=== PATIENT | female | born 2000 | race Caucasian/White ===

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

== ENCOUNTER 2018-01-25 22:18 | Outpatient (CLI) | payer MEDICAID ==
[~2018-01-25] VITALS: Ht 154.9 cm; Wt 92.5 kg
[~2018-01-25 22:18] MED LIST: CEFD300C3 PO; PREN1TAB86 PO
[2018-01-25 22:33] VITALS: BP 129/70
[2018-01-25 22:43] LABS: BILIRUBIN,URINE NEGATIVE (NEGATIVE); CLARITY,URINE SLIGHTLY CLOUDY; COLOR,URINE YELLOW; GLUCOSE, URINE (UA) NEGATIVE (NEGATIVE); KETONES,URINE NEGATIVE (NEGATIVE); LEUKOCYTE ESTERASE ,URINE 3+ (NEGATIVE); NITRITE,URINE NEGATIVE (NEGATIVE); PH,URINE 7 (5-9); PROTEIN,URINE NEGATIVE (NEGATIVE); UROBILINOGEN,URINE NORMAL (NORMAL)
[2018-01-25 22:50] LABS: AMORPHOUS SEDIMENT,UR MOD AMOR URATES /LPF; BACTERIA,URINE FEW /HPF
[2018-01-25 23:15] VITALS: BP 129/70
== END 2018-01-25 23:15 | disposition home or self-care (01) ==
LOC: WSo 22:18 → LDRP 22:19 → WSo 23:15
PROVIDERS: ATTEND Family Medicine
DX: O36.8130 Decreased fetal movements, third trimester, not applicable or unspecified (principal); Z3A.38 38 weeks gestation of pregnancy
CPT/HCPCS: 81000; 87088; 99212

== ENCOUNTER 2018-02-02 18:42 | Inpatient (IN) | payer MEDICAID ==
[~2018-02-02] VITALS: Ht 154.9 cm; Wt 92.8 kg
--- OUTSIDE RECORDS SUMMARY | 2018-02-02 18:45 | XMS REPORT ---
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 51772323 Problem Supervision of other high risk pregnancies, unspecified trimester O09.899 Active 050045371 Problem Other infections with a predominantly sexual mode of transmission complicating , first trimester O98.311 Active [id number] ALLERGIES No Known Allergies ENCOUNTERS Encounter Location Date Diagnosis [place] [id number] [place] [address]3905- 5782 02 Jan, 2018 Third trimester Z34.93 ; Encounter for immunization Z23 and 38 weeks gestation of Z3A.38 [place] [id number] [place] [address] 09936- 5050 25 Dec, 2017 care, first in third trimester Z34.03 and 37 weeks gestation of Z3A.37 [place] [id number] [place] [address] 79534- 2307 18 Dec, 2017 Dental examination Z01.20 [place] [id number] [place] [address] 05553- 2424 18 Dec, 2017 Third trimester Z34.93 and 36 weeks gestation of Z3A.36 [place] [address] [place] [address] Dec, Third trimester Z34.93 ; 34 weeks gestation of Z3A.34 and 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 [place] [id number] [place] [address] 51479- 4467 Nov, care, first in third trimester Z34.03 and 32 weeks gestation of Z3A.32 [place] [id number] [place] [address] 11029- 9231 Nov, care, first in third trimester Z34.03 ; 30 weeks gestation of Z3A.30 and Encounter for immunization Z23 [address] [address] Oct, care in third trimester Z34.93 and 28 weeks gestation of Z3A.[address] 17[address]- 6[address] Oct, Unspecified blood type, Rh negative Z67.91 [place] [id number] [place] [address] 14323- 0628 Oct, care, first in second trimester Z34.02 and 26 weeks gestation of Z3A.26 [place] [id number] [place] [address] 84601- 9874 Sep, care in second trimester Z34.92 and 22 weeks gestation of Z3A.22 [place] [id number] [place] [address] 78649- 3353 August, [place] [id number] [place] [address] 72796- 7356 August, Screening, deficiency anemia, iron Z13.0 [place] [id number] [place] [address] 06180- 2075 August, Urinary tract infection in mother during , antepartum O23.[address] [address]61- [address] August, [facility] [address], [place] [address] August, care, first in second trimester Z34.02 ; 17 weeks gestation of Z3A.17 and care in first trimester Z34.91 [facility] [address], [place] [address] 10 Jul, 2017 care in first trimester Z34.91 and 13 weeks gestation of Z3A.13 [facility] [address] [place] [address] 38936- 3363 16 Jun, 2017 care in first trimester Z34.91 [place] [id number] [place] [address] 13766- 9867 Jun, [place] [id number] [place] [address] 88970- 2965 Jun, [facility] [id number] [place] [address] 79229- 5938 Jun, care in first trimester Z34.91 ; 9 weeks gestation of Z3A.09 ; Genital lesion, female N94.9 and Genital candidiasis in female B37.3 [facility] [address], [place] [address] Jun, [facility] [address], [place] [address] Jun, [facility] [id number] [place] [address] 28222- 1864 Jun, [facility] [id number] [place] [address] 22854- 1963 Jun, Encounter for test, result unknown Z32.00 and Urinary tract infection without hematuria, site unspecified N39.0 [facility] [id number] [address] 17 Nov, 2015 Encounter for examination for participation in sport Z02.[address] [facility] [id number] [place] [id number] Jul, Dental examination Z01.20 [facility] [address] [facility] [id number] [place] [id number] Mar, [facility] [address] [facility] [id number] [place] [address] Mar, IMMUNIZATIONS No Known Immunizations SOCIAL HISTORY Never Assessed REASON FOR VISIT Dental est. care/ob PLAN OF CARE Activity Details Follow Up naseem Reason:CLAY/OB PT. VITAL SIGNS Height 62 in 2018-01-10 Blood pressure systolic 110 mmHg 2018-01-10 Blood pressure diastolic 58 mmHg 2018-01-10 MEDICATIONS Medication Instructions Dosage Frequency Start Date End Date Duration Status Acyclovir 400 mg Orally Three times a day 1 tablet 8h Dec, 60 days Not-Taking Complete 14-0.4 MG Orally Once a day 1 tablet 24h Active RESULTS No Results PROCEDURES Procedure Date Ordered Result Body Site INTRAORL - CMPL SERIES CODE 09033 Jan 10, 2018 PROPHYLAXIS - ADULT Jan 10, 2018 PANORAMIC FILM SEE ALSO CODE 58907 Jan 10, 2018 TOPICAL FLUORIDE VARNISH Jan 10, 2018 INSTRUCTIONS MEDICATIONS ADMINISTERED No Known Medications MEDICAL (GENERAL) HISTORY Type Description Date Medical History Pt. is due 2017 Surgical History No know Surgical history
--- OUTSIDE RECORDS SUMMARY | 2018-02-02 18:45 | XMS REPORT ---
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 93398847 Problem Supervision of other high risk pregnancies, unspecified trimester O09.899 Active 766522561 Problem Other infections with a predominantly sexual mode of transmission complicating , first trimester O98.311 Active 205481607075352 ALLERGIES No Known Allergies ENCOUNTERS Encounter Location Date Diagnosis [place] [id number] [place] [address] 17438- 0186 02 Jan, 2018 Third trimester Z34.93 ; Encounter for immunization Z23 and 38 weeks gestation of Z3A.38 [place] [id number] [place] [address] 94302- 2844 25 Dec, 2017 care, first in third trimester Z34.03 and 37 weeks gestation of Z3A.37 [place] [id number] [place] [address] 51591- 7068 18 Dec, 2017 Dental examination Z01.20 [place] [address] [place] [address] 50692- 4640 18 Dec, 2017 Third trimester Z34.93 and 36 weeks gestation of Z3A.[address] [address]- [address] Dec, Third trimester Z34.93 ; 34 weeks gestation of Z3A.34 and 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 [place] [address] [place] [address] 32509- 5202 Nov, care, first in third trimester Z34.03 and 32 weeks gestation of Z3A.32 [place] [address] [place] [address] 77723- 5788 Nov, care, first in third trimester Z34.03 ; 30 weeks gestation of Z3A.30 and Encounter for immunization Z23 [address] [address]- 6794 Oct, care in third trimester Z34.93 and 28 weeks gestation of Z3A.28 [place] [address] [place] [address] 34952- 0279 Oct, Unspecified blood type, Rh negative Z67.91 [place] [address] [place] [address] 48544- 3686 Oct, care, first in second trimester Z34.02 and 26 weeks gestation of Z3A.26 [place] [address] [place] [address] 01933- 1793 Sep, care in second trimester Z34.92 and 22 weeks gestation of Z3A.22 [place] [address] [place] [address] 73867- 2947 August, [place] [address] [place] [address] 89523- 7640 August, Screening, deficiency anemia, iron Z13.0 [place] [address] [place] [address] 56640- 2500 August, Urinary tract infection in mother during , antepartum O23.40 [place] [id number] [place] [address] 11309- 8494 August, [facility] [id number] [address] August, care, first in second trimester Z34.02 ; 17 weeks gestation of Z3A.17 and care in first trimester Z34.91 [facility] [address] [address] 10 Jul, 2017 care in first trimester Z34.91 and 13 weeks gestation of Z3A.13 [facility] [address] [address]- [address] Jun, care in first trimester Z34.91 [place] [address] [address]- [address] Jun, [place] [address] [address]- 46[address] Jun, [facility] [address] [place] [address] 80876- 2555 Jun, care in first trimester Z34.91 ; 9 weeks gestation of Z3A.09 ; Genital lesion, female N94.9 and Genital candidiasis in female B37.3 [facility] [address] [address]- 99[address] Jun, [facility] [address] [address]- 1764 Jun, [facility] [address] [address]- 3[address] Jun, [facility] [address] [address]- 8[address] Jun, Encounter for test, result unknown Z32.00 and Urinary tract infection without hematuria, site unspecified N39.0 [facility] [address] [facility] [id number] [address] Nov, Encounter for examination for participation in sport Z02.5 [facility] [address] [id number] [place] [id number] Jul, Dental examination Z01.20 [facility] [address] [facility] [id number] [place] [address] Mar, [facility] [address] [facility] [id number] [place] [address] 8014 Mar, IMMUNIZATIONS No Known Immunizations SOCIAL HISTORY Never Assessed REASON FOR VISIT OB 2wk f/u -mpolshakMA PLAN OF CARE Activity Details Follow Up 1 Week, 1 Week, 1 Week Reason: VITAL SIGNS Height 62 in 2018-01-10 Weight 198.3 lbs 2018-01-10 Temperature 97.1 degrees Fahrenheit 2018-01-10 Heart Rate 94 bpm 2018-01-10 Respiratory Rate 20 2018-01-10 BMI 36.27 kg/m2 2018-01-10 Blood pressure systolic 110 mmHg 2018-01-10 Blood pressure diastolic 58 mmHg 2018-01-10 MEDICATIONS Medication Instructions Dosage Frequency Start Date End Date Duration Status Acyclovir 400 mg Orally Three times a day 1 tablet 8h Dec, 60 days Not-Taking Complete 14-0.4 MG Orally Once a day 1 tablet 24h Active RESULTS No Results PROCEDURES Procedure Date Ordered Result Body Site URINE-NO MICRO Jan 10, 2018 LAB NOT BILLED BY [facility] Jan 10, 2018 INSTRUCTIONS MEDICATIONS ADMINISTERED No Known Medications MEDICAL (GENERAL) HISTORY Type Description Date Medical History Pt. is due 2017 Surgical History No know Surgical history
--- OUTSIDE RECORDS SUMMARY | 2018-02-02 18:45 | XMS REPORT ---
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 41750348 Problem Supervision of other high risk pregnancies, unspecified trimester O09.899 Active 823768524 Problem Other infections with a predominantly sexual mode of transmission complicating , first trimester O98.311 Active 484325472848849 ALLERGIES No Known Allergies ENCOUNTERS Encounter Location Date Diagnosis [place] [id number] [place] [address]96- 2674 02 Jan, 2018 Third trimester Z34.93 ; Encounter for immunization Z23 and 38 weeks gestation of Z3A.38 [place] [id number] [place] [address] 29312- 9895 25 Dec, 2017 care, first in third trimester Z34.03 and 37 weeks gestation of Z3A.37 [place] [address] [place] [address] 12604- 8027 18 Dec, 2017 Dental examination Z01.20 [place] [address] [place] [address] 52246- 7463 18 Dec, 2017 Third trimester Z34.93 and 36 weeks gestation of Z3A.[address] [address]24- [address]60 Dec, Third trimester Z34.93 ; 34 weeks gestation of Z3A.34 and 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 [place] [id number] [place] [address] 63011- 4363 Nov, care, first in third trimester Z34.03 and 32 weeks gestation of Z3A.32 [place] [id number] [place] [address] 32604- 8819 Nov, care, first in third trimester Z34.03 ; 30 weeks gestation of Z3A.30 and Encounter for immunization Z23 [address] [address]- 3974 Oct, care in third trimester Z34.93 and 28 weeks gestation of Z3A.28 [place] [id number] [place] [address] 81585- 6022 Oct, Unspecified blood type, Rh negative Z67.91 [place] [id number] [place] [address] 89082- 1528 Oct, care, first in second trimester Z34.02 and 26 weeks gestation of Z3A.26 [place] [id number] [place] [address] 98810- 3245 Sep, care in second trimester Z34.92 and 22 weeks gestation of Z3A.22 [place] [id number] [place] [address] 14017- 7708 August, [place] [id number] [place] [address] 92865- 9167 August, Screening, deficiency anemia, iron Z13.0 [place] [id number] [place] [address] 45617- 6782 August, Urinary tract infection in mother during , antepartum O23.40 [place] [id number] [place] [address] 68509- 4287 August, [facility] [place] [id number], [place] [address] August, care, first in second trimester Z34.02 ; 17 weeks gestation of Z3A.17 and care in first trimester Z34.91 [facility] [place] [address], [place] [address]- [address] 10 Jul, 2017 care in first trimester Z34.91 and 13 weeks gestation of Z3A.13 [facility] [place] [address], [place] [address]- 76[address] Jun, care in first trimester Z34.91 [place] [address], [place] [address]- 0[address] Jun, [place] [address], [place] [address]- 0035 Jun, [facility] [place] [address] [place] [address] 04095- 2674 Jun, care in first trimester Z34.91 ; 9 weeks gestation of Z3A.09 ; Genital lesion, female N94.9 and Genital candidiasis in female B37.3 [facility] [place] [address], [place] [address]- 2147 Jun, [facility] [place] [address], [place] [address]- 5600 Jun, [facility] [place] [address], [place] [address]- 3096 Jun, [facility] [place] [address], [place] [address]- 24[address] Jun, Encounter for test, result unknown Z32.00 and Urinary tract infection without hematuria, site unspecified N39.0 [facility] [address] [facility] [id number] [address] Nov, Encounter for examination for participation in sport Z02.[address] [facility] [id number] [place] [id number] Jul, Dental examination Z01.20 [facility] [place] [address] [facility] [id number] [place] [address]- 4[address] Mar, [facility] [place] [address] [facility] [id number] [place] [address]- 3279 Mar, IMMUNIZATIONS No Known Immunizations SOCIAL HISTORY Never Assessed REASON FOR VISIT OB 2wk f/u, OB Urine Dip, Cervix check--tcuppettRN PLAN OF CARE Activity Details Follow Up 1 Week Reason: VITAL SIGNS Height 62 in 2018-01-17 Weight 200.3 lbs 2018-01-17 Temperature 98.5 degrees Fahrenheit 2018-01-17 Heart Rate 92 bpm 2018-01-17 Respiratory Rate 18 2018-01-17 BMI 36.635 kg/m2 2018-01-17 Blood pressure systolic 112 mmHg 2018-01-17 Blood pressure diastolic 60 mmHg 2018-01-17 MEDICATIONS Medication Instructions Dosage Frequency Start Date End Date Duration Status Acyclovir 400 mg Orally Three times a day 1 tablet 8h Dec, 60 days Active Complete 14-0.4 MG Orally Once a day 1 tablet 24h Active RESULTS Name Result Date Reference Range UA OB DIP (IN HOUSE) 2018-01-17 Glucose Negative Protein Trace PROCEDURES Procedure Date Ordered Result Body Site URINE-NO MICRO Jan 17, 2018 INSTRUCTIONS MEDICATIONS ADMINISTERED No Known Medications MEDICAL (GENERAL) HISTORY Type Description Date Medical History Pt. is due 2017 Surgical History No know Surgical history
--- OUTSIDE RECORDS SUMMARY | 2018-02-02 18:46 | XMS REPORT ---
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 68104358 Problem Supervision of other high risk pregnancies, unspecified trimester O09.899 Active 060365874 Problem Other infections with a predominantly sexual mode of transmission complicating , first trimester O98.311 Active [id number] ALLERGIES No Information ENCOUNTERS Encounter Location Date Diagnosis [place] [id number] [place] [address] 69111- 2526 Jan, [place] [id number] [place] [address] 06462- 4272 Dec, [facility] [id number] [place] [address] 97095- 7496 Dec, [facility] [id number] [place] [address] 58624- 3507 Dec, [place] [address] 69071- 1353 Dec, Third trimester Z34.93 ; 34 weeks gestation of Z3A.34 and 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 [facility] [address] 37995- 6839 Nov, care, first in third trimester Z34.03 and 32 weeks gestation of Z3A.32 [place] [id number] [place] [address] 77631- 7903 Nov, care, first in third trimester Z34.03 ; 30 weeks gestation of Z3A.30 and Encounter for immunization Z23 [place] [address] 36060- 2808 Oct, care in third trimester Z34.93 and 28 weeks gestation of Z3A.28 [place] [id number] [place] [address] 48172- 6902 Oct, Unspecified blood type, Rh negative Z67.91 [place] [id number] [place] [address] 98543- 8464 Oct, care, first in second trimester Z34.02 and 26 weeks gestation of Z3A.26 [place] [id number] [place] [address] 49770- 4571 Sep, care in second trimester Z34.92 and 22 weeks gestation of Z3A.22 [place] [id number] [place] [address] 29718- 3281 August, [place] [id number] [place] [address] 30955- 6741 August, Screening, deficiency anemia, iron Z13.0 [place] [id number] [place] [address] 49272- 5051 August, Urinary tract infection in mother during , antepartum O23.40 [place] [id number] [place] [address] 91602- 2513 August, [place] [id number] [place] [address] 58598- 3797 August, care, first in second trimester Z34.02 ; 17 weeks gestation of Z3A.17 and care in first trimester Z34.91 [place] [address], [place] [address] 4283 10 Jul, 2017 care in first trimester Z34.91 and 13 weeks gestation of Z3A.13 [facility] [address], [place] [address] 2999 16 Jun, 2017 care in first trimester Z34.91 [facility] [id number] [place] [address] 31020- 7465 16 Jun, 2017 [place] [address] [place] [address] 10762- 5691 14 Jun, 2017 [place] [id number] [place] [address] 74007- 6402 13 Jun, 2017 care in first trimester Z34.91 ; 9 weeks gestation of Z3A.09 ; Genital lesion, female N94.9 and Genital candidiasis in female B37.3 [place] [address] [place] [address] 46340- 1683 09 Jun, 2017 [place] [address] [place] [address] 69549- 0577 Jun, [facility] [address] [place] [address] 97639- 1703 Jun, [facility] [address], [place] [address] 4317 Jun, Encounter for test, result unknown Z32.00 and Urinary tract infection without hematuria, site unspecified N39.0 [facility] [address], [place] [address] Nov, Encounter for examination for participation in sport Z02.5 [facility] [id number] [place] [id number] Jul, Dental examination Z01.20 [facility] [id number], [place] [address]- 9224 Mar, [facility] [address] [address]- 8181 Mar, IMMUNIZATIONS No Known Immunizations SOCIAL HISTORY Never Assessed REASON FOR VISIT OB f/u-nathan hernandez drank at 1348 PLAN OF CARE Activity Details Follow Up 2 Weeks, 2 Weeks, 2 Weeks Reason: VITAL SIGNS Height 62 in 2017-11-03 Weight 184 lbs 2017-11-03 Temperature 98.6 degrees Fahrenheit 2017-11-03 Heart Rate 112 bpm 2017-11-03 Respiratory Rate 18 2017-11-03 BMI 33.654 kg/m2 2017-11-03 Blood pressure systolic 112 mmHg 2017-11-03 Blood pressure diastolic 68 mmHg 2017-11-03 MEDICATIONS Medication Instructions Dosage Frequency Start Date End Date Duration Status Complete 14-0.4 MG Orally Once a day 1 tablet 24h Active Omnicef Active RESULTS No Results PROCEDURES Procedure Date Ordered Result Body Site LAB [facility] November 03, 2017 URINE-NO MICRO November 03, 2017 VENIPUNCT, ROUTINE* November 03, 2017 INSTRUCTIONS MEDICATIONS ADMINISTERED No Known Medications
--- OUTSIDE RECORDS SUMMARY | 2018-02-02 18:46 | XMS REPORT ---
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 48668365 Problem Supervision of other high risk pregnancies, unspecified trimester O09.899 Active 623153076 Problem Other infections with a predominantly sexual mode of transmission complicating , first trimester O98.311 Active [id number] ALLERGIES No Known Allergies ENCOUNTERS Encounter Location Date Diagnosis [place] [id number] [place] [address] 76784- 6873 02 Jan, 2018 [place] [id number] [place] [address] 46629- 8321 Dec, [place] [id number] [place] [address] 30209- 5146 Dec, Dental examination Z01.20 [place] [id number] [place] [address] 88409- 0583 18 Dec, 2017 Third trimester Z34.93 and 36 weeks gestation of Z3A.36 [place] [id number] [place] [address] 62536- 0344 05 Dec, 2017 Third trimester Z34.93 ; 34 weeks gestation of Z3A.34 and 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 [place] [address], [place] [address]- 6989 Nov, care, first in third trimester Z34.03 and 32 weeks gestation of Z3A.32 [place] [id number] [place] [address] 60104- 6755 Nov, care, first in third trimester Z34.03 ; 30 weeks gestation of Z3A.30 and Encounter for immunization Z23 [place] [id number] [place] [address] 14811- 5751 Oct, care in third trimester Z34.93 and 28 weeks gestation of Z3A.28 [place] [id number] [place] [address] 61756- 5552 Oct, Unspecified blood type, Rh negative Z67.91 [place] [id number] [place] [address] 97593- 5550 Oct, care, first in second trimester Z34.02 and 26 weeks gestation of Z3A.26 [place] [id number] [place] [address] 10640- 6654 Sep, care in second trimester Z34.92 and 22 weeks gestation of Z3A.22 [place] [id number] [place] [address] 14156- 8846 August, [place] [id number] [place] [address] 96090- 1542 August, Screening, deficiency anemia, iron Z13.0 [place] [id number] [place] [address] 99319- 7916 August, Urinary tract infection in mother during , antepartum O23.40 [place] [id number] [place] [address] 11292- 2484 August, [place] [id number] [place] [address] 70165- 0659 August, care, first in second trimester Z34.02 ; 17 weeks gestation of Z3A.17 and care in first trimester Z34.91 [place] [address] [place] [address] 48549- 4180 10 Jul, 2017 care in first trimester Z34.91 and 13 weeks gestation of Z3A.13 [facility] [place] [id number] [place] [address] 18469- 6601 16 Jun, 2017 care in first trimester Z34.91 [facility] [place] [id number] [place] [address] 50746- 7621 16 Jun, 2017 [place] [id number] [place] [address] 69897- 5665 14 Jun, 2017 [place] [id number] [place] [address] 67559- 2683 13 Jun, 2017 care in first trimester Z34.91 ; 9 weeks gestation of Z3A.09 ; Genital lesion, female N94.9 and Genital candidiasis in female B37.3 [place] [id number] [place] [address] 56026- 2118 Jun, [place] [id number] [place] [address] 76146- 5850 Jun, [facility] [place] [id number] [place] [address] 29302- 3906 Jun, [facility] [place] [id number] [place] [address] 93753- 1471 Jun, Encounter for test, result unknown Z32.00 and Urinary tract infection without hematuria, site unspecified N39.0 [facility] [address] [place] [address] 83256 -0483 Nov, Encounter for examination for participation in sport Z02.5 [facility] [address] [id number] [id number] Jul, Dental examination Z01.20 [facility] [place] [address] [place] [address] 05005- 2796 Mar, [facility] [place] [address] [facility] [place] [place] [id number] [place] [address]- 8096 Mar, IMMUNIZATIONS No Known Immunizations SOCIAL HISTORY Never Assessed REASON FOR VISIT OB 2wk f/u --tcuppettRN PLAN OF CARE Activity Details Follow Up 2 Weeks Reason: VITAL SIGNS Height 62 in 2017-12-15 Weight 192.4 lbs 2017-12-15 Temperature 98.2 degrees Fahrenheit 2017-12-15 Heart Rate 88 bpm 2017-12-15 Respiratory Rate 20 2017-12-15 BMI 35.19 kg/m2 2017-12-15 Blood pressure systolic 116 mmHg 2017-12-15 Blood pressure diastolic 62 mmHg 2017-12-15 MEDICATIONS Medication Instructions Dosage Frequency Start Date End Date Duration Status Complete 14-0.4 MG Orally Once a day 1 tablet 24h Active RESULTS Name Result Date Reference Range UA OB DIP (IN HOUSE) 2017-12-15 Glucose negative Protein 1+ PROCEDURES Procedure Date Ordered Result Body Site URINE-NO MICRO Dec 15, 2017 INSTRUCTIONS MEDICATIONS ADMINISTERED No Known Medications MEDICAL (GENERAL) HISTORY Type Description Date Medical History Pt. is due 2017 Surgical History No know Surgical history
--- OUTSIDE RECORDS SUMMARY | 2018-02-02 18:46 | XMS REPORT ---
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 00932075 Problem Supervision of other high risk pregnancies, unspecified trimester O09.899 Active 102326915 Problem Other infections with a predominantly sexual mode of transmission complicating , first trimester O98.311 Active [id number] ALLERGIES No Information ENCOUNTERS Encounter Location Date Diagnosis [place] [id number] [place] [address] 65686- 1917 Jan, [place] [id number] [place] [address] 36187- 7479 Dec, [facility] [id number] [place] [address] 33646- 3935 Dec, [facility] [id number] [place] [address] 81648- 2380 Dec, [place] [address] 18323- 2572 Dec, Third trimester Z34.93 ; 34 weeks gestation of Z3A.34 and 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 [facility] [address] 42814- 5932 Nov, care, first in third trimester Z34.03 and 32 weeks gestation of Z3A.32 [place] [id number] [place] [address] 00208- 8185 Nov, care, first in third trimester Z34.03 ; 30 weeks gestation of Z3A.30 and Encounter for immunization Z23 [place] [address] 06793- 3963 Oct, care in third trimester Z34.93 and 28 weeks gestation of Z3A.28 [place] [id number] [place] [address] 32846- 9226 Oct, Unspecified blood type, Rh negative Z67.91 [place] [id number] [place] [address] 64814- 2976 Oct, care, first in second trimester Z34.02 and 26 weeks gestation of Z3A.26 [place] [id number] [place] [address] 70907- 2813 Sep, care in second trimester Z34.92 and 22 weeks gestation of Z3A.22 [place] [id number] [place] [address] 72236- 7429 August, [place] [id number] [place] [address] 77579- 6555 August, Screening, deficiency anemia, iron Z13.0 [place] [id number] [place] [address] 01361- 2464 August, Urinary tract infection in mother during , antepartum O23.40 [place] [id number] [place] [address] 50335- 3552 August, [place] [id number] [place] [address] 89766- 5948 August, care, first in second trimester Z34.02 ; 17 weeks gestation of Z3A.17 and care in first trimester Z34.91 [place] [address], [place] [address]- 6030 10 Jul, 2017 care in first trimester Z34.91 and 13 weeks gestation of Z3A.13 [facility] [address], [place] [address]- 8977 16 Jun, 2017 care in first trimester Z34.91 [facility] [id number] [place] [address] 66090- 1636 16 Jun, 2017 [place] [address] [place] [address] 74818- 8852 14 Jun, 2017 [place] [id number] [place] [address] 85028- 5520 13 Jun, 2017 care in first trimester Z34.91 ; 9 weeks gestation of Z3A.09 ; Genital lesion, female N94.9 and Genital candidiasis in female B37.3 [place] [address] [place] [address] 66213- 1116 09 Jun, 2017 [place] [address] [place] [address] 72765- 9324 Jun, [facility] [address] [place] [address] 96844- 8141 Jun, [facility] [address], [place] [address]- 6865 Jun, Encounter for test, result unknown Z32.00 and Urinary tract infection without hematuria, site unspecified N39.0 [facility] [address], [place] [address] Nov, Encounter for examination for participation in sport Z02.5 [facility] [id number] [place] [id number] Jul, Dental examination Z01.20 [facility] [id number], [place] [address]- 7757 Mar, [facility] [address] 8023 Mar, IMMUNIZATIONS Vaccine Route Administration Date Status RHOGAM FULL DOSE IM Intramuscular November 09, 2017 Administered SOCIAL HISTORY Never Assessed REASON FOR VISIT Injection, Rhogam-awoods PLAN OF CARE VITAL SIGNS MEDICATIONS Unknown Medications RESULTS No Results PROCEDURES Procedure Date Ordered Result Body Site RH IG, FULL-DOSE, IM November 09, 2017 THER/PROPH/DIAG INJ, SC/IM November 09, 2017 INSTRUCTIONS MEDICATIONS ADMINISTERED No Known Medications
--- OUTSIDE RECORDS SUMMARY | 2018-02-02 18:46 | XMS REPORT ---
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 14306431 Problem Supervision of other high risk pregnancies, unspecified trimester O09.899 Active 928998197 Problem Other infections with a predominantly sexual mode of transmission complicating , first trimester O98.311 Active [id number] ALLERGIES No Information ENCOUNTERS Encounter Location Date Diagnosis [facility] [address] [place] [address] 60544- 6554 02 Jan, 2018 [facility] [id number] [place] [address] 47031- 0015 Dec, [facility] [id number] [place] [address] 03818- 4908 Dec, [facility] [id number] [place] [address] 38479- 3102 Dec, [facility] [id number] [place] [address] 92741- 4077 Nov, [facility] [id number] [place] [address] 45699- 4638 Nov, care, first in third trimester Z34.03 ; 30 weeks gestation of Z3A.30 and Encounter for immunization Z23 [place] [address] [place] [address] 22891- 8018 Oct, care in third trimester Z34.93 and 28 weeks gestation of Z3A.28 [place] [id number] [place] [address] 00398- 8255 Oct, Unspecified blood type, Rh negative Z67.91 [place] [id number] [place] [address] 45747- 0006 Oct, care, first in second trimester Z34.02 and 26 weeks gestation of Z3A.26 [place] [id number] [place] [address] 26188- 9683 Sep, care in second trimester Z34.92 and 22 weeks gestation of Z3A.22 [place] [id number] [place] [address] 33735- 1581 August, [place] [id number] [place] [address] 69367- 0082 August, Screening, deficiency anemia, iron Z13.0 [place] [id number] [place] [address] 86216- 4408 August, Urinary tract infection in mother during , antepartum O23.40 [place] [id number] [place] [address] 52381- 4633 August, [place] [id number] [place] [address] 98718- 8688 August, care, first in second trimester Z34.02 ; 17 weeks gestation of Z3A.17 and care in first trimester Z34.91 [place] [id number] [place] [address] 86169- 5781 Jul, care in first trimester Z34.91 and 13 weeks gestation of Z3A.13 [place] [id number] [place] [address] 79882- 5134 Jun, care in first trimester Z34.91 [facility] [address], [place] [address]- 6853 16 Jun, 2017 [facility] [address], [place] [address]- 6502 14 Jun, 2017 [facility] [address], [place] [address]- 4348 Jun, care in first trimester Z34.91 ; 9 weeks gestation of Z3A.09 ; Genital lesion, female N94.9 and Genital candidiasis in female B37.3 [facility] [address], [place] [address]- 6323 Jun, [place] [id number] [place] [address] 63773- 6893 Jun, [facility] [address] [place] [address] 34454- 6512 Jun, [facility] [address], [place] [address]- 1808 Jun, Encounter for test, result unknown Z32.00 and Urinary tract infection without hematuria, site unspecified N39.0 [facility] [id number], [place] [address] Nov, Encounter for examination for participation in sport Z02.[address] [place] [id number] [id number] Jul, Dental examination Z01.20 [facility] [address] [facility] [id number] [address]- 1701 Mar, [facility] [address] [place] [address] 59122- 0660 Mar, IMMUNIZATIONS No Known Immunizations SOCIAL HISTORY Never Assessed REASON FOR VISIT Lab results PLAN OF CARE VITAL SIGNS MEDICATIONS Unknown Medications RESULTS No Results PROCEDURES No Known procedures INSTRUCTIONS MEDICATIONS ADMINISTERED No Known Medications
--- OUTSIDE RECORDS SUMMARY | 2018-02-02 18:46 | XMS REPORT ---
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 32556855 Problem Supervision of other high risk pregnancies, unspecified trimester O09.899 Active 795955473 Problem Other infections with a predominantly sexual mode of transmission complicating , first trimester O98.311 Active [id number] ALLERGIES No Information ENCOUNTERS Encounter Location Date Diagnosis [facility] [id number] [place] [address] 16826- 4404 02 Jan, 2018 [facility] [id number] [place] [address] 97458- 2544 Dec, [facility] [id number] [place] [address] 30096- 4953 Dec, [facility] [id number] [place] [address] 23156- 2197 Dec, [facility] [id number] [place] [address] 40858- 2723 Nov, [facility] [id number] [place] [address] 24613- 2150 Nov, care, first in third trimester Z34.03 ; 30 weeks gestation of Z3A.30 and Encounter for immunization Z23 [place] [address] [place] [address] 66760- 3091 Oct, care in third trimester Z34.93 and 28 weeks gestation of Z3A.28 [place] [id number] [place] [address] 28728- 8163 Oct, Unspecified blood type, Rh negative Z67.91 [place] [id number] [place] [address] 72088- 7879 Oct, care, first in second trimester Z34.02 and 26 weeks gestation of Z3A.26 [place] [id number] [place] [address] 62854- 0236 Sep, care in second trimester Z34.92 and 22 weeks gestation of Z3A.22 [place] [id number] [place] [address] 42219- 9250 August, [place] [id number] [place] [address] 13057- 2834 August, Screening, deficiency anemia, iron Z13.0 [place] [id number] [place] [address] 36878- 7091 August, Urinary tract infection in mother during , antepartum O23.40 [place] [id number] [place] [address] 61012- 0880 August, [place] [id number] [place] [address] 13830- 9889 August, care, first in second trimester Z34.02 ; 17 weeks gestation of Z3A.17 and care in first trimester Z34.91 [place] [id number] [place] [address] 55650- 7524 Jul, care in first trimester Z34.91 and 13 weeks gestation of Z3A.13 [place] [id number] [place] [address] 21348- 5494 Jun, care in first trimester Z34.91 [facility] [address], [place] [address] 2524 16 Jun, 2017 [facility] [id number] [place] [address] 46460- 3236 14 Jun, 2017 [facility] [address] [place] [address] 70963- 9254 13 Jun, 2017 care in first trimester Z34.91 ; 9 weeks gestation of Z3A.09 ; Genital lesion, female N94.9 and Genital candidiasis in female B37.3 [place] [address] [place] [address] 24214- 9488 09 Jun, 2017 [place] [id number] [place] [address] 29000- 1151 Jun, [place] [id number] [place] [address] 36961- 5105 Jun, [facility] [address] [place] [address] 38887- 8024 08 Jun, 2017 Encounter for test, result unknown Z32.00 and Urinary tract infection without hematuria, site unspecified N39.0 [facility] [address] [address] Nov, Encounter for examination for participation in sport Z02.[address] [place] [id number] [id number] [id number] Jul, Dental examination Z01.20 [facility] [address] [facility] [id number] [address] 0979 Mar, [place] [id number] [place] [address] 97082- 3372 Mar, IMMUNIZATIONS No Known Immunizations SOCIAL HISTORY Never Assessed REASON FOR VISIT [facility] Hemoglobin--TSowell PLAN OF CARE VITAL SIGNS MEDICATIONS Unknown Medications RESULTS Name Result Date Reference Range HEMOGLOBIN (IN HOUSE) 2017-09-20 HEMOGLOBIN 10.5 11.5 - 16 gm/dL Lot # [id number] Exp date 01/31/2019 PROCEDURES Procedure Date Ordered Result Body Site HEMOGLOBIN September 20, 2017 INSTRUCTIONS MEDICATIONS ADMINISTERED No Known Medications
--- OUTSIDE RECORDS SUMMARY | 2018-02-02 18:46 | XMS REPORT ---
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 45082527 Problem Supervision of other high risk pregnancies, unspecified trimester O09.899 Active 408036713 Problem Other infections with a predominantly sexual mode of transmission complicating , first trimester O98.311 Active [id number] ALLERGIES No Information ENCOUNTERS Encounter Location Date Diagnosis [place] [id number] [place] [address] 79641- 7060 02 Jan, 2018 [facility] [id number] [place] [address] 01513- 9244 Dec, [facility] [id number] [place] [address] 86671- 8370 Dec, [facility] [id number] [place] [address] 25972- 4966 Dec, [facility] [id number] [place] [address] 18961- 8598 Nov, care, first in third trimester Z34.03 and 32 weeks gestation of Z3A.32 [facility] [id number] [place] [address] 40524- 0867 07 Nov, 2017 care, first in third trimester Z34.03 ; 30 weeks gestation of Z3A.30 and Encounter for immunization Z23 [place] [address] [place] [address] 31100- 6566 Oct, care in third trimester Z34.93 and 28 weeks gestation of Z3A.28 [place] [address] [place] [address] 14933- 8044 Oct, Unspecified blood type, Rh negative Z67.91 [place] [id number] [address]- 3357 Oct, care, first in second trimester Z34.02 and 26 weeks gestation of Z3A.26 [place] [address] [place] [address] 54589- 7605 Sep, care in second trimester Z34.92 and 22 weeks gestation of Z3A.22 [place] [address] [place] [address] 99034- 9337 August, [place] [address] [place] [address] 47445- 0215 August, Screening, deficiency anemia, iron Z13.0 [place] [address] [address]- 7772 August, Urinary tract infection in mother during , antepartum O23.40 [place] [address] [address]- 3902 August, [place] [address] [place] [address] 37872- 2985 August, care, first in second trimester Z34.02 ; 17 weeks gestation of Z3A.17 and care in first trimester Z34.91 [place] [address] [address]- 5732 Jul, care in first trimester Z34.91 and 13 weeks gestation of Z3A.13 [place] [id number] [address]- 4415 16 Jun, 2017 care in first trimester Z34.91 [facility] [address] [place] [address] 57283- 9139 16 Jun, 2017 [place] [address] [place] [address] 44267- 8168 14 Jun, 2017 [facility] [address] [place] [address] 93253- 5879 13 Jun, 2017 care in first trimester Z34.91 ; 9 weeks gestation of Z3A.09 ; Genital lesion, female N94.9 and Genital candidiasis in female B37.3 [place] [address] [place] [address] 64049- 7974 09 Jun, 2017 [place] [address] [place] [address] 95206- 6558 Jun, [place] [address] [place] [address] 05499- 1762 08 Jun, 2017 [facility] [address] [place] [address] 53518- 2325 08 Jun, 2017 Encounter for test, result unknown Z32.00 and Urinary tract infection without hematuria, site unspecified N39.0 [facility] [address] [address] Nov, Encounter for examination for participation in sport Z02.5 [facility] [address] [id number] [id number] Jul, Dental examination Z01.20 [place] [address] [place] [address] 92500- 5018 Mar, [place] [address] [place] [address] 33841- 1948 Mar, IMMUNIZATIONS No Known Immunizations SOCIAL HISTORY Never Assessed REASON FOR VISIT OB f/u -- lynne allen PLAN OF CARE Activity Details Follow Up 4 Weeks, 4 Weeks Reason: VITAL SIGNS Height 62 in 2017-10-04 Weight 175.0 lbs 2017-10-04 Temperature 97.5 degrees Fahrenheit 2017-10-04 Heart Rate 70 bpm 2017-10-04 Respiratory Rate 18 2017-10-04 BMI 32.008 kg/m2 2017-10-04 Blood pressure systolic 120 mmHg 2017-10-04 Blood pressure diastolic 70 mmHg 2017-10-04 MEDICATIONS Medication Instructions Dosage Frequency Start Date End Date Duration Status Complete 14-0.4 MG Orally Once a day 1 tablet 24h Active RESULTS Name Result Date Reference Range UA OB DIP (IN HOUSE) 2017-10-04 Glucose negative Protein negative PROCEDURES Procedure Date Ordered Result Body Site URINE-NO MICRO October 04, 2017 INSTRUCTIONS MEDICATIONS ADMINISTERED No Known Medications
--- OUTSIDE RECORDS SUMMARY | 2018-02-02 18:46 | XMS REPORT ---
Author Author UMM BARBA 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 66764316 Problem Supervision of other high risk pregnancies, unspecified trimester O09.899 Active 448089225 Problem Other infections with a predominantly sexual mode of transmission complicating , first trimester O98.311 Active [id number] ALLERGIES No Known Allergies ENCOUNTERS Encounter Location Date Diagnosis [place] [id number] [place] [address] 10746- 0049 Jan, [facility] [id number] [place] [address] 80712- 0441 Dec, [facility] [id number] [place] [address] 95256- 2868 Dec, [facility] [id number] [place] [address] 35695- 9292 Dec, [facility] [id number] [place] [address] 21969- 7980 Dec, Third trimester Z34.93 ; 34 weeks gestation of Z3A.34 and 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 [facility] [id number] [place] [address] 29099- 5674 Nov, care, first in third trimester Z34.03 and 32 weeks gestation of Z3A.32 [place] [id number] [place] [address] 62816- 3167 Nov, care, first in third trimester Z34.03 ; 30 weeks gestation of Z3A.30 and Encounter for immunization Z23 [place] [address] 70997- 8655 Oct, care in third trimester Z34.93 and 28 weeks gestation of Z3A.28 [place] [id number] [place] [address] 26316- 8227 Oct, Unspecified blood type, Rh negative Z67.91 [place] [address] 60059- 1702 Oct, care, first in second trimester Z34.02 and 26 weeks gestation of Z3A.26 [place] [id number] [place] [address] 30363- 4975 Sep, care in second trimester Z34.92 and 22 weeks gestation of Z3A.22 [place] [id number] [place] [address] 85150- 0114 August, [place] [id number] [place] [address] 33200- 8392 August, Screening, deficiency anemia, iron Z13.0 [place] [id number] [place] [address] 33642- 8910 August, Urinary tract infection in mother during , antepartum O23.40 [place] [address] 97611- 7233 August, [place] [address] 81494- 5017 August, care, first in second trimester Z34.02 ; 17 weeks gestation of Z3A.17 and care in first trimester Z34.91 [place] [address] [address]- 0453 10 Jul, 2017 care in first trimester Z34.91 and 13 weeks gestation of Z3A.13 [facility] [address], [place] [address]- 4089 16 Jun, 2017 care in first trimester Z34.91 [place] [id number] [place] [address] 37600- 8618 16 Jun, 2017 [place] [address] [place] [address] 43733- 7668 14 Jun, 2017 [place] [id number] [place] [address] 73461- 8450 13 Jun, 2017 care in first trimester Z34.91 ; 9 weeks gestation of Z3A.09 ; Genital lesion, female N94.9 and Genital candidiasis in female B37.3 [place] [address] [place] [address] 59439- 9067 09 Jun, 2017 [place] [address] [place] [address] 86841- 7815 Jun, [facility] [address] [place] [address] 78052- 2035 Jun, [facility] [address], [place] [address]- 8890 Jun, Encounter for test, result unknown Z32.00 and Urinary tract infection without hematuria, site unspecified N39.0 [facility] [id number] [address] Nov, Encounter for examination for participation in sport Z02.5 [facility] [address] [facility] [id number] [place] [id number] Jul, Dental examination Z01.20 [facility] [address], [place] [address]- 8205 Mar, [facility] [id number] [id number] 7336 Mar, IMMUNIZATIONS Vaccine Route Administration Date Status TDAP (BOOSTRIX) IM Intramuscular Nov 29, 2017 Administered SOCIAL HISTORY Never Assessed REASON FOR VISIT OB f/u --tcuppettRN PLAN OF CARE Activity Details Follow Up 2 Weeks, 2 Weeks, 2 Weeks Reason: VITAL SIGNS Height 62 in 2017-11-29 Weight 190.9 lbs 2017-11-29 Temperature 98.5 degrees Fahrenheit 2017-11-29 Heart Rate 92 bpm 2017-11-29 Respiratory Rate 20 2017-11-29 BMI 34.916 kg/m2 2017-11-29 Blood pressure systolic 116 mmHg 2017-11-29 Blood pressure diastolic 70 mmHg 2017-11-29 MEDICATIONS Medication Instructions Dosage Frequency Start Date End Date Duration Status Complete 14-0.4 MG Orally Once a day 1 tablet 24h Active Omnicef Not-Taking RESULTS No Results PROCEDURES Procedure Date Ordered Result Body Site URINE-NO MICRO Nov 29, 2017 SINGLE IMMUNIZATION ADMIN Nov 29, 2017 TDAP (BOOSTRIX) Nov 29, 2017 LAB NOT BILLED BY [facility] Nov 29, 2017 INSTRUCTIONS MEDICATIONS ADMINISTERED No Known Medications
--- OUTSIDE RECORDS SUMMARY | 2018-02-02 18:46 | XMS REPORT ---
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 66363607 Problem Supervision of other high risk pregnancies, unspecified trimester O09.899 Active 094896708 Problem Other infections with a predominantly sexual mode of transmission complicating , first trimester O98.311 Active [id number] ALLERGIES No Information ENCOUNTERS Encounter Location Date Diagnosis [place] [address] [address]- 5725 02 Jan, 2018 [place] [id number] [place] [address] 00372- 0452 Dec, care, first in third trimester Z34.03 and 37 weeks gestation of Z3A.37 [place] [id number] [place] [address] 13246- 4124 18 Dec, 2017 Dental examination Z01.[address] 0[address]84- 1985 18 Dec, 2017 Third trimester Z34.93 and 36 weeks gestation of Z3A.36 [place] [address] 44096- 4205 05 Dec, 2017 Third trimester Z34.93 ; 34 weeks gestation of Z3A.34 and 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 [place] [address] [place] [address] 41013- 8133 Nov, care, first in third trimester Z34.03 and 32 weeks gestation of Z3A.32 [place] [id number] [place] [address] 66181- 6098 Nov, care, first in third trimester Z34.03 ; 30 weeks gestation of Z3A.30 and Encounter for immunization Z23 [place] [address] [id number] [place] [address] 45947- 0670 Oct, care in third trimester Z34.93 and 28 weeks gestation of Z3A.28 [place] [id number] [place] [address] 12240- 9963 Oct, Unspecified blood type, Rh negative Z67.91 [place] [id number] [place] [address] 64961- 8847 Oct, care, first in second trimester Z34.02 and 26 weeks gestation of Z3A.26 [place] [id number] [place] [address] 09257- 5912 Sep, care in second trimester Z34.92 and 22 weeks gestation of Z3A.22 [place] [address] [id number] [place] [address] 60588- 1626 August, [place] [address] [id number] [place] [address] 31826- 6996 August, Screening, deficiency anemia, iron Z13.0 [place] [id number] [place] [address] 18137- 6563 August, Urinary tract infection in mother during , antepartum O23.40 [place] [id number] [place] [address] 95643- 5818 August, [place] [address] [id number] [place] [address] 70028- 1623 August, care, first in second trimester Z34.02 ; 17 weeks gestation of Z3A.17 and care in first trimester Z34.91 [place] [address] [place] [address] 04317- 7235 10 Jul, 2017 care in first trimester Z34.91 and 13 weeks gestation of Z3A.13 [place] [id number] [place] [address] 75407- 4260 16 Jun, 2017 care in first trimester Z34.91 [place] [address] [place] [address] 82201- 4304 16 Jun, 2017 [place] [address] [place] [address] 15498- 8727 14 Jun, 2017 [place] [id number] [place] [address] 42748- 3237 Jun, care in first trimester Z34.91 ; 9 weeks gestation of Z3A.09 ; Genital lesion, female N94.9 and Genital candidiasis in female B37.3 [place] [address] [place] [address] 88442- 0833 Jun, [place] [address] [place] [address] 61063- 4164 Jun, [place] [address] [place] [address] 51178- 9450 Jun, [place] [address] [place] [address] 26156- 5039 Jun, Encounter for test, result unknown Z32.00 and Urinary tract infection without hematuria, site unspecified N39.0 [facility] [address] [address] Nov, Encounter for examination for participation in sport Z02.[address] [id number] [id number] [id number] Jul, Dental examination Z01.20 [facility] [address] [facility] [id number] [place] [address]- 1532 Mar, [facility] [address] [facility] [id number] [place] [address]- 8788 Mar, IMMUNIZATIONS No Known Immunizations SOCIAL HISTORY Never Assessed REASON FOR VISIT OB 2wk f/u -awoods PLAN OF CARE Activity Details Follow Up 1 Week, 1 Week Reason: VITAL SIGNS Height 62 in 2017-12-28 Weight 196.6 lbs 2017-12-28 Temperature 98.1 degrees Fahrenheit 2017-12-28 Heart Rate 90 bpm 2017-12-28 Respiratory Rate 20 2017-12-28 BMI 35.959 kg/m2 2017-12-28 Blood pressure systolic 114 mmHg 2017-12-28 Blood pressure diastolic 64 mmHg 2017-12-28 MEDICATIONS Medication Instructions Dosage Frequency Start Date End Date Duration Status Acyclovir 400 mg Orally Three times a day 1 tablet 8h Dec, 60 days Active Complete 14-0.4 MG Orally Once a day 1 tablet 24h Active RESULTS Name Result Date Reference Range UA OB DIP (IN HOUSE) 2017-12-28 Glucose negative Protein trace PROCEDURES Procedure Date Ordered Result Body Site URINE-NO MICRO Dec 28, 2017 INSTRUCTIONS MEDICATIONS ADMINISTERED No Known Medications MEDICAL (GENERAL) HISTORY Type Description Date Medical History Pt. is due 2017 Surgical History No know Surgical history
--- OUTSIDE RECORDS SUMMARY | 2018-02-02 18:47 | XMS REPORT ---
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 03558544 Problem care, first in second trimester Z34.02 Active 142812790 Problem Other infections with a predominantly sexual mode of transmission complicating , first trimester O98.311 Active 754852598405487 Problem Unspecified blood type, Rh negative Z67.91 Active 320156158 ALLERGIES No Information ENCOUNTERS Encounter Location Date Diagnosis [place] [address] [place] [address] 86575- 4430 Oct, [place] [id number] [place] [address] 29998- 5950 Oct, care, first in second trimester Z34.02 and 26 weeks gestation of Z3A.26 [place] [address] [place] [address] 12534- 2378 Sep, care in second trimester Z34.92 and 22 weeks gestation of Z3A.22 [place] [address] [place] [id number] [place] [address] 60274- 2817 August, [place] [address] [place] [id number] [place] [address] 13325- 5597 August, Screening, deficiency anemia, iron Z13.0 [place] [address] [address] August, Urinary tract infection in mother during , antepartum O23.40 [place] [address] [place] [id number] [address] 74[address] August, [place] [address], [place] [address] 4[address] August, care, first in second trimester Z34.02 ; 17 weeks gestation of Z3A.17 and care in first trimester Z34.91 [place] [address] [address] 2[address] 10 Jul, 2017 care in first trimester Z34.91 and 13 weeks gestation of Z3A.13 [place] [address] [address] 8[address] 16 Jun, 2017 care in first trimester Z34.91 [place] [address] [place] [id number] [address] 0[address] Jun, [place] [address], [place] [address] 90[address] Jun, [place] [address] [address] 0254 Jun, care in first trimester Z34.91 ; 9 weeks gestation of Z3A.09 ; Genital lesion, female N94.9 and Genital candidiasis in female B37.3 [place] [address], [place] [address] 89[address] Jun, [place] [address] [address]- 8777 Jun, [place] [address], [place] [address] 5759 Jun, [place] [address] [place] [id number], [place] [address] 6166 Jun, Encounter for test, result unknown Z32.00 and Urinary tract infection without hematuria, site unspecified N39.0 [facility] [address] [facility] [id number] [place] [address] 17 Nov, 2015 Encounter for examination for participation in sport Z02.5 [facility] [id number] [place] [id number] Jul, Dental examination Z01.20 [facility] [address] [facility] [id number] [address] Mar, [facility] [address] [facility] [id number] [address] Mar, IMMUNIZATIONS No Known Immunizations SOCIAL HISTORY Never Assessed REASON FOR VISIT Rx from lab results PLAN OF CARE VITAL SIGNS MEDICATIONS Medication Instructions Dosage Frequency Start Date End Date Duration Status Acyclovir 400 mg Orally Three times a day 1 tablet 8h Jun, 10 day(s) Active RESULTS No Results PROCEDURES No Known procedures INSTRUCTIONS MEDICATIONS ADMINISTERED No Known Medications
--- OUTSIDE RECORDS SUMMARY | 2018-02-02 18:47 | XMS REPORT ---
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 57927714 Problem care, first in second trimester Z34.02 Active 189833258 Problem Other infections with a predominantly sexual mode of transmission complicating , first trimester O98.311 Active 000729970662734 Problem Unspecified blood type, Rh negative Z67.91 Active 811229492 ALLERGIES No Known Allergies ENCOUNTERS Encounter Location Date Diagnosis [place] [address] [place] [address] 53100- 2229 Oct, [place] [id number] [place] [address] 38173- 7259 Oct, care, first in second trimester Z34.02 and 26 weeks gestation of Z3A.26 [place] [address] [place] [address] 33341- 9785 Sep, care in second trimester Z34.92 and 22 weeks gestation of Z3A.22 [place] [address] [id number] [place] [address] 26118- 2143 August, [place] [address] [id number] [place] [address] 88174- 2134 August, Screening, deficiency anemia, iron Z13.[address] [id number] [address] 9[address] August, Urinary tract infection in mother during , antepartum O23.40 [place] [address] [place] 2322265[place], [place] [address]- 6[address] August, [place] [address], [place] [address] 9127 August, care, first in second trimester Z34.02 ; 17 weeks gestation of Z3A.17 and care in first trimester Z34.91 [place] [address], [place] [address]- 1748 10 Jul, 2017 care in first trimester Z34.91 and 13 weeks gestation of Z3A.13 [place] [address], [place] [address]- 6434 16 Jun, 2017 care in first trimester Z34.91 [place] [address] [place] [id number], [place] [address]- 60[address] Jun, [place] [address], [place] [address]- 6882 Jun, [place] [address], [place] [address]- 7187 Jun, care in first trimester Z34.91 ; 9 weeks gestation of Z3A.09 ; Genital lesion, female N94.9 and Genital candidiasis in female B37.3 [place] [address], [place] [address]- 4092 Jun, [place] [address], [place] [address]- 5657 Jun, [place] [address], [place] [address]- 4005 Jun, [place] [address] [place] [id number], [place] [address]- 5807 Jun, Encounter for test, result unknown Z32.00 and Urinary tract infection without hematuria, site unspecified N39.0 [facility] [address] [facility] [id number] [place] [address] 17 Nov, 2015 Encounter for examination for participation in sport Z02.[address] [facility] [address] [id number] [place] [id number] Jul, Dental examination Z01.20 [facility] [address] [facility] [id number], [place] [address] Mar, [facility] [address] [facility] [id number] [address] 38[address] Mar, IMMUNIZATIONS No Known Immunizations SOCIAL HISTORY Never Assessed REASON FOR VISIT OB-intake--[facility] PLAN OF CARE Activity Details Follow Up 4 Weeks Reason: VITAL SIGNS Height 62 in 2017-07-05 Weight 160 lbs 2017-07-05 Temperature 98.4 degrees Fahrenheit 2017-07-05 Heart Rate 80 bpm 2017-07-05 Respiratory Rate 20 2017-07-05 BMI 29.264 kg/m2 2017-07-05 Blood pressure systolic 122 mmHg 2017-07-05 Blood pressure diastolic 76 mmHg 2017-07-05 MEDICATIONS Medication Instructions Dosage Frequency Start Date End Date Duration Status Complete 14-0.4 MG Orally Once a day 1 tablet 24h Active Clotrimazole 1 % Externally Twice a day 1 application to affected area 12h Jun, 27 Jun, 2017 07 days Active Macrobid 100 mg Orally every 12 hrs 1 capsule with food 12h 08 Jun, 2017 Jun, 7 days Active Clotrimazole-7 1 % Vaginal Once a day 1 application at bedtime 24h Jun, Jun, 7 day(s) Active RESULTS No Results PROCEDURES Procedure Date Ordered Result Body Site No Charge July 05, 2017 URINALYSIS, AUTO, W/O SCOPE July 05, 2017 LAB NOT BILLED BY [facility] July 05, 2017 INSTRUCTIONS MEDICATIONS ADMINISTERED No Known Medications
--- OUTSIDE RECORDS SUMMARY | 2018-02-02 18:47 | XMS REPORT ---
Author Author SARA GARCIA [facility] eClinical[employer] Address Unknown Phone Unavailable Care Team Providers Care Dialysis Social Worker Name Role Phone SARA GARCIA CP Unavailable Allergies, Adverse Reactions, Alerts Substance Reaction Event Type N.K.D.A. Info Not Available Non Drug Allergy Problems Problem Type Condition Code Onset Dates Condition Status Problem DTAP TEST V06.1 Active Assessment Encounter for examination for participation in sport Z02.5 Active Problem Dental examination Z01.20 Active Medications No Known Medications Procedures Procedure Coding System Code Date Office Visit, Est Pt., Level 3 CPT-4 87500 Dec 10, 2015 Vital Signs Date/Time: Dec 10, 2015 Cardiac Monitoring Heart Rate 68 bpm Weight 143 lbs Height 62 in Ht Percentile 19.36 % BMI 26.15 Index Blood Pressure Diastolic 62 mmHg Blood Pressure Systolic 104 mmHg BMIPercentile 87.23 % Wt Percentile 79.05 % Results No Known Results Summary Purpose eClinicalWorks Submission
--- OUTSIDE RECORDS SUMMARY | 2018-02-02 18:47 | XMS REPORT ---
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 12847331 Problem care, first in second trimester Z34.02 Active 620991784 Problem Other infections with a predominantly sexual mode of transmission complicating , first trimester O98.311 Active 140149863040411 Problem Unspecified blood type, Rh negative Z67.91 Active 383693573 ALLERGIES No Information ENCOUNTERS Encounter Location Date Diagnosis [place] [address] [place] [address] 08404- 1377 Oct, [place] [address] [id number] [place] [address] 56159- 2031 Oct, care, first in second trimester Z34.02 and 26 weeks gestation of Z3A.26 [place] [address] [place] [address] 12159- 4984 Sep, care in second trimester Z34.92 and 22 weeks gestation of Z3A.22 [place] [address] [id number] [place] [address] 58640- 4737 August, [place] [address] [id number] [place] [address] 24791- 7866 August, Screening, deficiency anemia, iron Z13.0 [place] [address], [place] [address]- 5888 August, Urinary tract infection in mother during , antepartum O23.40 [place] [address], [place] [address]- 4322 August, [place] [address], [place] [address]- 8113 August, care, first in second trimester Z34.02 ; 17 weeks gestation of Z3A.17 and care in first trimester Z34.91 [place] [address], [place] [address]- 8181 10 Jul, 2017 care in first trimester Z34.91 and 13 weeks gestation of Z3A.13 [place] [address], [place] [address]- 6056 16 Jun, 2017 care in first trimester Z34.91 [place] [address], [place] [address]- 1210 Jun, [place] [address], [place] [address]- 0239 Jun, [place] [address], [place] [address]- 9959 Jun, care in first trimester Z34.91 ; 9 weeks gestation of Z3A.09 ; Genital lesion, female N94.9 and Genital candidiasis in female B37.3 [place] [address], [place] [address]- 8387 Jun, [place] [address], [place] [address]- 9588 Jun, [place] [address], [place] [address]- 6399 Jun, [place] [address], [place] [address]- 2659 Jun, Encounter for test, result unknown Z32.00 and Urinary tract infection without hematuria, site unspecified N39.0 [facility] [address] [facility] [id number] [place] [address] Nov, Encounter for examination for participation in sport Z02.[address] [facility] [address] [id number] [place] [id number] Jul, Dental examination Z01.20 [facility] [address] [facility] [id number], [place] [address]- 4828 Mar, [facility] [address] [facility] [id number] [address] Mar, IMMUNIZATIONS No Known Immunizations SOCIAL HISTORY Never Assessed REASON FOR VISIT Test results PLAN OF CARE VITAL SIGNS MEDICATIONS Medication Instructions Dosage Frequency Start Date End Date Duration Status Macrobid 100 mg Orally every 12 hrs 1 capsule with food 12h 08 Jun, 2017 Jun, 7 days Active RESULTS No Results PROCEDURES No Known procedures INSTRUCTIONS MEDICATIONS ADMINISTERED No Known Medications
--- OUTSIDE RECORDS SUMMARY | 2018-02-02 18:47 | XMS REPORT ---
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 52010840 Problem care, first in second trimester Z34.02 Active 485438317 Problem Other infections with a predominantly sexual mode of transmission complicating , first trimester O98.311 Active 716144544005407 Problem Unspecified blood type, Rh negative Z67.91 Active 763374627 ALLERGIES No Information ENCOUNTERS Encounter Location Date Diagnosis [place] [address] [place] [id number] [place] [address] 36801- 5228 Oct, [place] [id number] [place] [address] 71140- 7968 Oct, Unspecified blood type, Rh negative Z67.91 [place] [address] [place] [id number] [place] [address] 78157- 1345 Oct, care, first in second trimester Z34.02 and 26 weeks gestation of Z3A.26 [place] [address] [place] [id number] [place] [address] 03235- 1603 Sep, care in second trimester Z34.92 and 22 weeks gestation of Z3A.22 [place] [address] [place] [id number] [place] [address] 84981- 7121 August, [place] [address] [place] [id number] [place] [address] 86915- 4245 August, Screening, deficiency anemia, iron Z13.0 [place] [address] [place] [id number] [place] [address] 39338- 1076 August, Urinary tract infection in mother during , antepartum O23.40 [place] [address] [place] [id number] [place] [address] 23229- 3369 August, [place] [address] [place] [id number] [place] [address] 68094- 6353 August, care, first in second trimester Z34.02 ; 17 weeks gestation of Z3A.17 and care in first trimester Z34.91 [place] [address] [place] [id number] [place] [address] 50377- 5646 Jul, care in first trimester Z34.91 and 13 weeks gestation of Z3A.13 [place] [address] [place] [id number] [place] [address] 17699- 8387 16 Jun, 2017 care in first trimester Z34.91 [place] [address] [place] [id number] [place] [address] 56230- 9909 Jun, [place] [address] [place] [id number] [place] [address] 97022- 7372 Jun, [place] [address] [place] [address] 51222- 4513 Jun, care in first trimester Z34.91 ; 9 weeks gestation of Z3A.09 ; Genital lesion, female N94.9 and Genital candidiasis in female B37.3 [place] [address] [place] [id number] [place] [address] 87781- 8991 Jun, [place] [address] [place] [id number] [place] [address] 23040- 2107 Jun, [place] [address] [place] [id number] [place] [address] 89687- 7198 Jun, [place] [address] [facility] [id number][place] [address] [address]45 Jun, Encounter for test, result unknown Z32.00 and Urinary tract infection without hematuria, site unspecified N39.0 [facility] [address] [facility] [id number], [place] [address] Nov, Encounter for examination for participation in sport Z02.[address] [place] [address] [id number] [id number] Jul, Dental examination Z01.20 [facility] [address] [facility] [id number], [place] [address]- 0113 Mar, [facility] [address] [facility] [id number], [place] [address]- 1403 Mar, IMMUNIZATIONS No Known Immunizations SOCIAL HISTORY Never Assessed REASON FOR VISIT Presumptive Eligibility-APPROVAL PLAN OF CARE VITAL SIGNS MEDICATIONS Unknown Medications RESULTS No Results PROCEDURES No Known procedures INSTRUCTIONS MEDICATIONS ADMINISTERED No Known Medications
--- OUTSIDE RECORDS SUMMARY | 2018-02-02 18:47 | XMS REPORT ---
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 79956383 Problem care, first in second trimester Z34.02 Active 110970900 Problem Other infections with a predominantly sexual mode of transmission complicating , first trimester O98.311 Active 354000113634606 Problem Unspecified blood type, Rh negative Z67.91 Active 619722858 ALLERGIES No Information ENCOUNTERS Encounter Location Date Diagnosis [place] [address] [place] [address] 94184- 3145 Oct, [place] [id number] [place] [address] 47047- 6421 Oct, care, first in second trimester Z34.02 and 26 weeks gestation of Z3A.26 [place] [address] [place] [address] 45169- 1585 Sep, care in second trimester Z34.92 and 22 weeks gestation of Z3A.22 [place] [address] [place] [id number] [place] [address] 90739- 3083 August, [place] [address] [place] [id number] [place] [address] 30080- 0934 August, Screening, deficiency anemia, iron Z13.0 [place] [address], [place] [address]- 5060 August, Urinary tract infection in mother during , antepartum O23.40 [place] [address] [place] [id number], [place] [address]- 7116 August, [place] [address], [place] [address]- 2514 August, care, first in second trimester Z34.02 ; 17 weeks gestation of Z3A.17 and care in first trimester Z34.91 [place] [address], [place] [address]- 4184 10 Jul, 2017 care in first trimester Z34.91 and 13 weeks gestation of Z3A.13 [place] [address], [place] [address]- 8168 16 Jun, 2017 care in first trimester Z34.91 [place] [address] [place] [id number], [place] [address]- 7464 Jun, [place] [address], [place] [address]- 4786 Jun, [place] [address], [place] [address]- 2305 Jun, care in first trimester Z34.91 ; 9 weeks gestation of Z3A.09 ; Genital lesion, female N94.9 and Genital candidiasis in female B37.3 [place] [address], [place] [address]- 2865 Jun, [place] [address], [place] [address]- 5503 Jun, [place] [address], [place] [address]- 4851 Jun, [place] [address] [place] [id number], [place] [address]- 4095 Jun, Encounter for test, result unknown Z32.00 and Urinary tract infection without hematuria, site unspecified N39.0 [facility] [address] [facility] [id number] [place] [address] 17 Nov, 2015 Encounter for examination for participation in sport Z02.5 [facility] [address] [id number] [place] [id number] Jul, Dental examination Z01.20 [facility] [address] [facility] [id number] [address]- 4934 Mar, [facility] [address] [facility] [id number][place] [address]44[address]- 5283 Mar, IMMUNIZATIONS No Known Immunizations SOCIAL HISTORY Never Assessed REASON FOR VISIT Future lab order PLAN OF CARE VITAL SIGNS MEDICATIONS Unknown Medications RESULTS No Results PROCEDURES No Known procedures INSTRUCTIONS MEDICATIONS ADMINISTERED No Known Medications
--- OUTSIDE RECORDS SUMMARY | 2018-02-02 18:47 | XMS REPORT ---
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 79979769 Problem care, first in second trimester Z34.02 Active 630910098 Problem Other infections with a predominantly sexual mode of transmission complicating , first trimester O98.311 Active 231196006909566 Problem Unspecified blood type, Rh negative Z67.91 Active 859525798 ALLERGIES No Information ENCOUNTERS Encounter Location Date Diagnosis [place] [address] [place] [address] 77860- 8010 Oct, [place] [id number] [place] [address] 80379- 7834 Oct, care, first in second trimester Z34.02 and 26 weeks gestation of Z3A.26 [place] [address] [place] [address] 45112- 2975 Sep, care in second trimester Z34.92 and 22 weeks gestation of Z3A.22 [place] [address] [place] [id number] [place] [address] 14644- 2325 August, [place] [address] [address] [id number] [place] [address] 63573- 2644 August, Screening, deficiency anemia, iron Z13.0 [place] [address] [address] August, Urinary tract infection in mother during , antepartum O23.40 [place] [address] [place] [id number] [address] 4094 August, [place] [address] [address] 9[address] August, care, first in second trimester Z34.02 ; 17 weeks gestation of Z3A.17 and care in first trimester Z34.91 [place] [address] [address] 7[address] 10 Jul, 2017 care in first trimester Z34.91 and 13 weeks gestation of Z3A.13 [place] [address] [address] 15[address] 16 Jun, 2017 care in first trimester Z34.91 [place] [address] [place] [id number] [address] 3897 Jun, [place] [address] [address] 00[address] Jun, [place] [address] [address] 160[address] Jun, care in first trimester Z34.91 ; 9 weeks gestation of Z3A.09 ; Genital lesion, female N94.9 and Genital candidiasis in female B37.3 [place] [address] [address] 455[address] Jun, [place] [address] [address] 6620 Jun, [place] [address] [address] 2656 Jun, [place] [address] [place] [id number] [address] Jun, Encounter for test, result unknown Z32.00 and Urinary tract infection without hematuria, site unspecified N39.0 [facility] [address] [facility] [id number] [place] [address] 17 Nov, 2015 Encounter for examination for participation in sport Z02.[address] [facility] [address] [id number] [place] [id number] Jul, Dental examination Z01.20 [facility] [address] [facility] [id number] [address] Mar, [facility] [address] [facility] [id number] [address] Mar, IMMUNIZATIONS No Known Immunizations SOCIAL HISTORY Never Assessed REASON FOR VISIT Requests return call PLAN OF CARE VITAL SIGNS MEDICATIONS Unknown Medications RESULTS No Results PROCEDURES No Known procedures INSTRUCTIONS MEDICATIONS ADMINISTERED No Known Medications
--- OUTSIDE RECORDS SUMMARY | 2018-02-02 18:47 | XMS REPORT ---
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 92193962 Problem Supervision of other high risk pregnancies, unspecified trimester O09.899 Active 770211553 Problem Other infections with a predominantly sexual mode of transmission complicating , first trimester O98.311 Active [id number] ALLERGIES No Information ENCOUNTERS Encounter Location Date Diagnosis [place] [id number] [place] [address] 72543- 0220 02 Jan, 2018 [facility] [address] [place] [id number] [place] [address] 97026- 1444 Dec, [facility] [address] [place] [address] [id number] [place] [address] 17954- 4763 Dec, [facility] [address] [id number] [place] [address] 72545- 0596 Dec, [facility] [address] [place] [address] [id number] [place] [address] 56961- 7607 Nov, [facility] [address] [place] [id number] [place] [address] 41720- 2135 Nov, care, first in third trimester Z34.03 ; 30 weeks gestation of Z3A.30 and Encounter for immunization Z23 [place] [address] [place] [address] 06996- 1906 Oct, care in third trimester Z34.93 and 28 weeks gestation of Z3A.28 [place] [address] [place] [id number] [place] [address] 10654- 4050 Oct, Unspecified blood type, Rh negative Z67.91 [place] [address] [place] [address] [id number] [place] [address] 65547- 5025 Oct, care, first in second trimester Z34.02 and 26 weeks gestation of Z3A.26 [place] [address] [place] [address] [id number] [place] [address] 50885- 5479 Sep, care in second trimester Z34.92 and 22 weeks gestation of Z3A.22 [place] [address] [place] [address] [id number] [place] [address] 49903- 7440 August, [place] [address] [place] [id number] [place] [address] 15118- 9643 August, Screening, deficiency anemia, iron Z13.0 [place] [address] [place] [address] [id number] [place] [address] 40317- 5504 August, Urinary tract infection in mother during , antepartum O23.40 [place] [address] [place] [address] [id number] [place] [address] 15561- 4011 August, [place] [address] [place] [address] [id number] [place] [address] 87758- 7653 August, care, first in second trimester Z34.02 ; 17 weeks gestation of Z3A.17 and care in first trimester Z34.91 [place] [address] [place] [address] [id number] [place] [address] 57242- 8875 Jul, care in first trimester Z34.91 and 13 weeks gestation of Z3A.13 [place] [address] [place] [address] [id number] [place] [address] 88319- 8387 Jun, care in first trimester Z34.91 [facility] [address] [address]- 3956 16 Jun, 2017 [facility] [address] [place] [address] [id number] [place] [address] 15849- 9244 14 Jun, 2017 [facility] [address] [place] [address] 71175- 0098 13 Jun, 2017 care in first trimester Z34.91 ; 9 weeks gestation of Z3A.09 ; Genital lesion, female N94.9 and Genital candidiasis in female B37.3 [facility] [address] [place] [address] 24099- 8395 09 Jun, 2017 [place] [address] [address] [id number] [place] [address] 96274- 5892 Jun, [place] [address] [place] [address] [id number] [place] [address] 58544- 5012 08 Jun, 2017 [facility] [address] [place] [address] 60762- 4677 08 Jun, 2017 Encounter for test, result unknown Z32.00 and Urinary tract infection without hematuria, site unspecified N39.0 [facility] [address] [address] Nov, Encounter for examination for participation in sport Z02.[address] [place] [address] [id number] [id number] Jul, Dental examination Z01.20 [facility] [address] [facility] [id number] [address]- 8237 Mar, [place] [address] [place] [id number] [place] [address] 30241- 7398 Mar, IMMUNIZATIONS No Known Immunizations SOCIAL HISTORY Never Assessed REASON FOR VISIT Rx from lab results PLAN OF CARE VITAL SIGNS MEDICATIONS Medication Instructions Dosage Frequency Start Date End Date Duration Status Cefdinir 300 MG Orally every 12 hrs 1 capsule 12h August, August, 07 days Active RESULTS No Results PROCEDURES No Known procedures INSTRUCTIONS MEDICATIONS ADMINISTERED No Known Medications
--- OUTSIDE RECORDS SUMMARY | 2018-02-02 18:47 | XMS REPORT ---
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 42702010 Problem Supervision of other high risk pregnancies, unspecified trimester O09.899 Active 974765823 Problem Other infections with a predominantly sexual mode of transmission complicating , first trimester O98.311 Active 231483605610027 ALLERGIES No Information ENCOUNTERS Encounter Location Date Diagnosis [place] [address] [place] [address] 03215- 7420 02 Jan, 2018 [facility] [address] [place] [id number] [place] [address] 70753- 9214 Dec, [facility] [address] [place] [id number] [place] [address] 20285- 1275 Dec, [facility] [id number] [place] [address] 86451- 8595 Dec, [facility] [id number] [place] [address] 13959- 7223 Nov, [facility] [address] [place] [address] [id number] [place] [address] 46798- 6591 Nov, care, first in third trimester Z34.03 ; 30 weeks gestation of Z3A.30 and Encounter for immunization Z23 [place] [address] [place] [address] 67516- 6735 Oct, care in third trimester Z34.93 and 28 weeks gestation of Z3A.28 [place] [address] [place] [id number] [place] [address] 62784- 6772 Oct, Unspecified blood type, Rh negative Z67.91 [place] [address] [place] [address] [id number] [place] [address] 15050- 0725 Oct, care, first in second trimester Z34.02 and 26 weeks gestation of Z3A.26 [place] [address] [place] [id number] [place] [address] 30575- 3842 Sep, care in second trimester Z34.92 and 22 weeks gestation of Z3A.22 [place] [address] [place] [id number] [place] [address] 45332- 2378 August, [place] [address] [place] [id number] [place] [address] 45187- 7081 August, Screening, deficiency anemia, iron Z13.0 [place] [address] [id number] [place] [address] 38245- 9201 August, Urinary tract infection in mother during , antepartum O23.40 [place] [address] [id number] [place] [address] 89030- 2312 August, [place] [address] [place] [id number] [place] [address] 87978- 5026 August, care, first in second trimester Z34.02 ; 17 weeks gestation of Z3A.17 and care in first trimester Z34.91 [place] [address] [place] [id number] [place] [address] 13747- 3510 Jul, care in first trimester Z34.91 and 13 weeks gestation of Z3A.13 [place] [address] [place] [id number] [place] [address] 91094- 8925 Jun, care in first trimester Z34.91 [facility] [address] [address]- 7464 16 Jun, 2017 [facility] [address], [place] [address]- 8586 14 Jun, 2017 [facility] [address], [place] [address]- 3354 Jun, care in first trimester Z34.91 ; 9 weeks gestation of Z3A.09 ; Genital lesion, female N94.9 and Genital candidiasis in female B37.3 [facility] [address], [place] [address]- 2196 Jun, [place] [address] [place] [id number] [place] [address] 37335- 5926 Jun, [place] [address] [place] [address] 14722- 4070 Jun, [facility] [address] [address]- 8101 Jun, Encounter for test, result unknown Z32.00 and Urinary tract infection without hematuria, site unspecified N39.0 [facility] [address] [place] [id number] [address] Nov, Encounter for examination for participation in sport Z02.[address] [id number] [id number] Jul, Dental examination Z01.20 [facility] [address] [facility] [id number] [address]- 1075 Mar, [facility] [address] [place] [address] 70092- 4979 Mar, IMMUNIZATIONS No Known Immunizations SOCIAL HISTORY Never Assessed REASON FOR VISIT Returned call PLAN OF CARE VITAL SIGNS MEDICATIONS Unknown Medications RESULTS No Results PROCEDURES No Known procedures INSTRUCTIONS MEDICATIONS ADMINISTERED No Known Medications
--- OUTSIDE RECORDS SUMMARY | 2018-02-02 18:47 | XMS REPORT ---
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 75107578 Problem care, first in second trimester Z34.02 Active 320003746 Problem Other infections with a predominantly sexual mode of transmission complicating , first trimester O98.311 Active 821418174141035 Problem Unspecified blood type, Rh negative Z67.91 Active 171797990 ALLERGIES No Information ENCOUNTERS Encounter Location Date Diagnosis [place] [address] [id number] [place] [address] 63324- 2458 Nov, [place] [address] [place] [id number] [place] [address] 67374- 2356 Oct, care in third trimester Z34.93 and 28 weeks gestation of Z3A.28 [place] [address] [id number] [place] [address] 65681- 1633 Oct, Unspecified blood type, Rh negative Z67.91 [place] [id number] [place] [address] 63016- 7816 Oct, care, first in second trimester Z34.02 and 26 weeks gestation of Z3A.26 [place] [id number] [place] [address] 17124- 4454 Sep, care in second trimester Z34.92 and 22 weeks gestation of Z3A.22 [place] [address], [place] [address]- 5947 August, [place] [address] [id number] [place] [address] 43289- 8227 August, Screening, deficiency anemia, iron Z13.0 [place] [address] [id number] [place] [address] 25996- 9619 August, Urinary tract infection in mother during , antepartum O23.40 [place] [address] [id number] [place] [address] 21975- 2162 August, [place] [address] [id number] [place] [address] 76219- 1725 August, care, first in second trimester Z34.02 ; 17 weeks gestation of Z3A.17 and care in first trimester Z34.91 [place] [id number] [place] [address] 74011- 3900 Jul, care in first trimester Z34.91 and 13 weeks gestation of Z3A.13 [place] [id number] [place] [address] 37278- 5985 16 Jun, 2017 care in first trimester Z34.91 [place] [address], [place] [address]- 6658 16 Jun, 2017 [place] [id number] [place] [address] 52919- 2011 14 Jun, 2017 [place] [address] [place] [address] 47245- 3619 13 Jun, 2017 care in first trimester Z34.91 ; 9 weeks gestation of Z3A.09 ; Genital lesion, female N94.9 and Genital candidiasis in female B37.3 [place] [address], [place] [address]- 1735 Jun, [place] [address] [place] [id number] [address]- 7333 Jun, [facility] [address] [facility] [id number] [address]- 7710 Jun, [facility] [address] [place] [address] 524840- 1482 Jun, Encounter for test, result unknown Z32.00 and Urinary tract infection without hematuria, site unspecified N39.0 [facility] [address] [facility] [id number] [address] 17 Nov, 2015 Encounter for examination for participation in sport Z02.[address] [id number] [id number] Jul, Dental examination Z01.20 [facility] [address] [place] [address] 77188- 1615 Mar, [place] [address] [place] [address] 75392- 4510 Mar, IMMUNIZATIONS No Known Immunizations SOCIAL HISTORY Never Assessed REASON FOR VISIT OB 4wk f/u -- lynne allen PLAN OF CARE Activity Details Follow Up 4 Weeks, 4 Weeks Reason: VITAL SIGNS Height 62 in 2017-08-02 Weight 161.9 lbs 2017-08-02 Temperature 98.3 degrees Fahrenheit 2017-08-02 Heart Rate 76 bpm 2017-08-02 Respiratory Rate 18 2017-08-02 BMI 29.612 kg/m2 2017-08-02 Blood pressure systolic 118 mmHg 2017-08-02 Blood pressure diastolic 70 mmHg 2017-08-02 MEDICATIONS Medication Instructions Dosage Frequency Start Date End Date Duration Status Complete 14-0.4 MG Orally Once a day 1 tablet 24h Active RESULTS Name Result Date Reference Range UA OB DIP (IN HOUSE) 2017-08-02 Glucose negative Protein trace PROCEDURES Procedure Date Ordered Result Body Site URINE-NO MICRO August 02, 2017 INSTRUCTIONS MEDICATIONS ADMINISTERED No Known Medications
--- OUTSIDE RECORDS SUMMARY | 2018-02-02 18:48 | XMS REPORT ---
Author Author GEMINI MCNAIR Organization [employer] Address Unknown Phone Unavailable Care Team Providers Care Sharebroker Name Role Phone GEMINI MCNAIR CP Unavailable Allergies, Adverse Reactions, Alerts Substance Reaction Event Type N.K.D.A. Info Not Available Non Drug Allergy Problems Problem Type Condition Code Onset Dates Condition Status Problem DTAP TEST V06.1 Active Assessment Dental examination Z01.20 Active Problem Dental examination Z01.20 Active Medications No Known Medications Procedures Procedure Coding System Code Date TOPICAL FLUORIDE VARNISH CPT-4 D1206 August 18, 2015 PROPHYLAXIS - ADULT CPT-4 D1110 August 18, 2015 Results No Known Results Summary Purpose [employer] Submission
--- OUTSIDE RECORDS SUMMARY | 2018-02-02 18:48 | XMS REPORT | Continuity of Care Document ---
Author Author [facility] Address Unknown Phone Unavailable Allergies Active Description Code Type Severity Reaction Onset Reported/Identified Relationship to Patient Clinical Status Yes No Known Drug Allergies [id number] Drug Allergy Unknown N/A 11/02/2017 Medications There is no data. Problems Date Dx Coded Attending Type Code Diagnosis Diagnosed By 12/18/2007 AUREA HANCOCK DO V20.2 WELL CHILD, ROUTINE 03/30/2013 AUREA HANCOCK DO V06.1 TDAP DX 07/08/2017 UMM BARBA MD, Ot Z34.91 ENCNTR FOR SUPRVSN OF NORMAL PREG, UNSP, 07/08/2017 UMM BARBA MD Ot Z3A.09 9 WEEKS GESTATION OF 07/29/2017 UMM BARBA MD Ot Z34.91 ENCNTR FOR SUPRVSN OF NORMAL PREG, UNSP, 07/29/2017 UMM BARBA MD Ot Z3A.09 9 WEEKS GESTATION OF 08/31/2017 UMM BARBA MD Ot Z34.91 ENCNTR FOR SUPRVSN OF NORMAL PREG, UNSP, 08/31/2017 UMM BARBA MD Ot Z3A.09 9 WEEKS GESTATION OF 09/07/2017 UMM BARBA MD Ot Z34.91 ENCNTR FOR SUPRVSN OF NORMAL PREG, UNSP, 09/07/2017 UMM BARBA MD Ot Z3A.09 9 WEEKS GESTATION OF 09/08/2017 UMM BARBA MD Ot Z36.89 ENCOUNTER FOR OTHER SPECIFIED 09/08/2017 UMM BARBA MD, Ot Z3A.18 18 WEEKS GESTATION OF 09/22/2017 UMM BARBA MD Ot Z36.89 ENCOUNTER FOR OTHER SPECIFIED 09/22/2017 UMM BARBA MD Ot Z3A.18 18 WEEKS GESTATION OF 11/02/2017 UMM BARBA MD, Ot Z34.91 ENCNTR FOR SUPRVSN OF NORMAL PREG, UNSP, 11/02/2017 UMM BARBA MD, Ot Z3A.09 9 WEEKS GESTATION OF 11/02/2017 UMM BARBA MD, Ot Z36.89 ENCOUNTER FOR OTHER SPECIFIED 11/02/2017 UMM BARBA MD, Ot Z3A.18 18 WEEKS GESTATION OF 11/02/2017 UMM BARBA MD, Ot O46.92 ANTEPARTUM HEMORRHAGE, UNSPECIFIED, SECO 11/02/2017 UMM BARBA MD, Ot Z3A.26 26 WEEKS GESTATION OF 11/03/2017 UMM BARBA MD, Ot O46.92 ANTEPARTUM HEMORRHAGE, UNSPECIFIED, SECO 11/03/2017 UMM BARBA MD, Ot Z3A.26 26 WEEKS GESTATION OF 01/27/2018 BARNIDGE DO, MICHEL E Ot O36.8130 DECREASED MOVEMENTS, THIRD TRIMEST 01/27/2018 BARNIDGE DO, MICHEL E Ot Z3A.38 38 WEEKS GESTATION OF 01/31/2018 BARNIDGE DO, MICHEL E Ot O36.8130 DECREASED MOVEMENTS, THIRD TRIMEST 01/31/2018 BARNIDGE DO, MICHEL E Ot Z3A.38 38 WEEKS GESTATION OF Procedures There is no data. Results Test Result Range CULTURE, URINE - 06/30/17 12:15 CULTURE, URINE, ROUTINE SEE NOTE NRG CULTURE, VIRAL (HSV W/TYPING) - 07/05/17 15:37 SOURCE: LAB NRG HSV CULTURE: ISOLATED NRG HSV TYPE 2: NEGATIVE NRG HSV TYPE 1: POSITIVE NRG CULTURE, GENITAL - 07/05/17 15:48 CULTURE, GENITAL SEE NOTE NRG CULTURE, URINE - 08/30/17 09:47 CULTURE, URINE, ROUTINE SEE NOTE NRG Complete urinalysis with reflex to culture - 11/02/17 13:15 Urine color determination YELLOW NRG Urine clarity determination CLEAR NRG Urine pH measurement by test strip 8 5-9 Specific gravity of urine by test strip 1.015 1.016- 1.022 Urine protein assay by test strip, semi-quantitative 3+ NEGATIVE Urine glucose detection by automated test strip NEGATIVE NEGATIVE Erythrocytes detection in urine sediment by light microscopy 5+ NEGATIVE Urine ketones detection by automated test strip NEGATIVE NEGATIVE Urine nitrite detection by test strip NEGATIVE NEGATIVE Urine total bilirubin detection by test strip NEGATIVE NEGATIVE Urine urobilinogen measurement by automated test strip (mass/volume) NORMAL NORMAL Urine leukocyte esterase detection by dipstick 3+ NEGATIVE Automated urine sediment erythrocyte count by microscopy (number/high power field) > [HPF] NRG Automated urine sediment leukocyte count by microscopy (number/high power field ) [HPF] NRG Bacteria detection in urine sediment by light microscopy LARGE NRG Squamous epithelial cells detection in urine sediment by light microscopy 5-10 NRG Crystals detection in urine sediment by light microscopy PRESENT NRG Casts detection in urine sediment by light microscopy NONE NRG Mucus detection in urine sediment by light microscopy NEGATIVE NRG Complete urinalysis with reflex to culture YES NRG Amorphous sediment detection in urine sediment by light microscopy FEW MATEO PHOSPHATE NRG Renal epithelial cells detection in urine sediment by light microscopy NONE NRG Bacterial urine culture - 11/02/17 13:15 Bacterial urine culture [facility] NR COLONY COUNT . NRG FTX;REPORTABLE [facility] SUSCEPTIBILITY PRINTED 1205, 7 NR FREE TEXT ENTRY 2 FINAL REPORT [facility] Sensitivity Panel - 11/02/17 13:15 Gentamicin susceptibility test by minimum inhibitory concentration < = NRG Trimethoprim/sulfamethoxazole susceptibility test by minimum inhibitoryconcentration > NRG Levofloxacin susceptibility test by minimum inhibitory concentration <= NRG Ampicillin susceptibility test by minimum inhibitory concentration > NRG Cefazolin susceptibility test by minimum inhibitory concentration 4 NRG Ceftriaxone susceptibility test by minimum inhibitory concentration <= NRG Ciprofloxacin susceptibility test by minimum inhibitory concentration <= NRG Meropenem susceptibility test by minimum inhibitory concentration < = NRG Nitrofurantoin susceptibility test by minimum inhibitory concentration 32 NRG Amoxicillin and clavulanate potassium susc WEST = NRG CBC - 11/03/17 15:03 WHITE BLOOD CELL COUNT 6.9 Thousand/uL 3.8-10.8 RED BLOOD CELL COUNT 3.65 Million/uL 3.80-5.10 HEMOGLOBIN 11.4 g/dL 11.7-15.5 HEMATOCRIT 33.9 % 35.0-45.0 MCV 92.9 fL 80.0-100.0 MCH 31.2 pg 27.0-33.0 MCHC 33.6 g/dL 32.0-36.0 RDW 12.0 % 11.0-15.0 PLATELET COUNT 320 Thousand/uL 140-400 MPV 9.1 fL 7.5-12.5 ABSOLUTE NEUTROPHILS 5782 cells/uL 7962-0205 ABSOLUTE LYMPHOCYTES 745 cells/uL 850-3900 ABSOLUTE MONOCYTES 352 cells/uL 200-950 ABSOLUTE EOSINOPHILS 0 cells/uL 15-500 ABSOLUTE BASOPHILS 21 cells/uL 0-200 NEUTROPHILS 83.8 % NRG LYMPHOCYTES 10.8 % NRG MONOCYTES 5.1 % NRG EOSINOPHILS 0.0 % NRG BASOPHILS 0.3 % NRG CULTURE, URINE - 11/29/17 13:14 CULTURE, URINE, ROUTINE SEE NOTE NRG CULTURE, GROUP B STREP (VAGINAL) - 01/10/18 15:24 STREPTOCOCCUS, GROUP B CULTURE SEE NOTE NRG Complete urinalysis with reflex to culture - 01/25/18 22:30 Urine color determination YELLOW NRG Urine clarity determination SLIGHTLY CLOUDY NRG Urine pH measurement by test strip 7 5-9 Specific gravity of urine by test strip 1.015 1.016- 1.022 Urine protein assay by test strip, semi-quantitative NEGATIVE NEGATIVE Urine glucose detection by automated test strip NEGATIVE NEGATIVE Erythrocytes detection in urine sediment by light microscopy NEGATIVE NEGATIVE Urine ketones detection by automated test strip NEGATIVE NEGATIVE Urine nitrite detection by test strip NEGATIVE NEGATIVE Urine total bilirubin detection by test strip NEGATIVE NEGATIVE Urine urobilinogen measurement by automated test strip (mass/volume) NORMAL NORMAL Urine leukocyte esterase detection by dipstick 3+ NEGATIVE Automated urine sediment erythrocyte count by microscopy (number/high power field) NONE NRG Automated urine sediment leukocyte count by microscopy (number/high power field ) [HPF] NRG Bacteria detection in urine sediment by light microscopy FEW NRG Squamous epithelial cells detection in urine sediment by light microscopy 5-10 NRG Crystals detection in urine sediment by light microscopy PRESENT NRG Casts detection in urine sediment by light microscopy NONE NRG Mucus detection in urine sediment by light microscopy NEGATIVE NRG Complete urinalysis with reflex to culture NO NRG Amorphous sediment detection in urine sediment by light microscopy MOD MATEO URATES NRG Bacterial urine culture - 01/25/18 22:30 Bacterial urine culture SEE COMMEN NRG COLONY COUNT . NRG FTX;REPORTABLE 10,000 CFU/ML NRG Encounters ACCT No. Visit Date/Time Discharge Status Pt. Type Provider Facility Loc./Unit Complaint [id number] 03/30/2013 11:53:00 03/30/2013 23:59:59 CLS Outpatient AUREA HANCOCK DO [id number] 01/10/2018 11:00:00 01/10/2018 23:59:59 CLS Outpatient [facility] [id number] 01/10/2018 10:20:00 Document Registration [id number] 11/29/2017 10:40:00 Document Registration [id number] 11/03/2017 13:40:00 Document Registration [id number] 08/30/2017 09:20:00 Document Registration [id number] 07/05/2017 14:20:00 Document Registration [id number] 06/30/2017 11:45:00 Document Registration [id number] 01/25/2018 22:18:00 01/25/2018 23:15:00 DIS Outpatient MICHEL DUKE DO [facility] NOT FEELING BABY MOVE [id number] 11/02/2017 12:43:00 11/02/2017 15:30:00 DIS Outpatient UMM BARBA MD [facility] VAGINAL BLEEDING [id number] 09/07/2017 09:58:00 09/07/2017 23:59:59 CLS Outpatient UMM BARBA MD [facility] [id number] 07/07/2017 10:48:00 07/07/2017 23:59:59 CLS Outpatient UMM BARBA MD [facility] RAD Z34.91 CARE IN FIRST TRIME[facility]
[2018-02-02] MEDS ORDERED: LACTATED RINGERS 1,000 ML IV PRN ×2 (19:36)
[2018-02-02] MEDS ORDERED: CATHETER FLUSH 10 ML SYR IV PRN (19:45)
[2018-02-02] MEDS ORDERED: CITRIC ACID/SOB CIT (BICITRA) 30 ML UDC PO ONE (19:45)
[2018-02-02] MEDS ORDERED: FAMOTIDINE 20MG/2ML IV (PEPCID) IV ONE (19:45)
[2018-02-02] MEDS ORDERED: METOCLOPRAMIDE INJ 10 MG/2 ML (REGLAN) IV ONE (19:45)
[2018-02-02 19:48] VITALS: BP 124/75
[2018-02-02 19:58] VITALS: BP 79/45
[2018-02-02 20:00] VITALS: BP 103/54
[2018-02-02 20:14] LABS: BASOPHILS % (AUTO) 0 % (0-10); EOSINOPHILS % (AUTO) 0 % (0-10); HEMATOCRIT 33 % (35-52); HEMOGLOBIN 10.8 G/DL (11.5-16.0); LYMPHOCYTES # (AUTO) 2.3 X 10^3 (1.0-4.0); LYMPHOCYTES % (AUTO) 22 % (12-44); MEAN CORPUSCULAR HEMOGLOBIN 29 PG (25-34); MEAN CORPUSCULAR HGB CONC 33 G/DL (32-36); MEAN CORPUSCULAR VOLUME 89 FL (80-99); MEAN PLATELET VOLUME 9.8 FL (7.4-10.4); MONOCYTES # (AUTO) 0.7 X 10^3 (0.0-1.0); MONOCYTES % (AUTO) 6 % (0-12); NEUTROPHILS # (AUTO) 7.5 X 10^3 (1.8-7.8); NEUTROPHILS % (AUTO) 72 % (42-75); PLATELET COUNT 295 10^3/uL (130-400); RED BLOOD COUNT 3.67 10^6/uL (4.35-5.85); RED CELL DISTRIBUTION WIDTH 13.6 % (10.0-14.5); WHITE BLOOD COUNT 10.4 10^3/uL (4.3-11.0)
[2018-02-02 20:25] VITALS: BP 138/67
--- NOTE | 2018-02-02 20:36 | History & Physical-OB ---
OB - Chief Complaint & HPI Date/Time Date of Admission: Date of Admission: Feb 02, 2018 at 6:42 pm Date seen by a Provider: Feb 02, 2018 Time Seen by a Provider: 20:20 Chief Complaint/History OB-Reason for Admission/Chief: Section Hx : 1 Expected Date of Delivery: Feb 07, 2018 Gestational Age in Weeks: 39 Other reason for admission: This 17-year-old 's 39 weeks' gestation incision and from the office for Dr. 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 The patient has opted to proceed with which we plan to do as soon as is safe due to concerns for transmission to her infant. History of Labs Please see [facility] records Laboratory Tests Test 02/02/18 20:06 Range/Units White Blood Count 10.4 4.3-11.0 10^3/uL Red Blood Count 3.67 L 4.35-5.85 10^6/uL Hemoglobin 10.8 L 11.5-16.0 G/DL Hematocrit 33 L 35-52 % Mean Corpuscular Volume 89 80-99 FL Mean Corpuscular Hemoglobin 29 25-34 PG Mean Corpuscular Hemoglobin Concent 33 32-36 G/DL Red Cell Distribution Width 13.6 10.0-14.5 % Platelet Count 295 130-400 10^3/uL Mean Platelet Volume 9.8 7.4-10.4 FL Neutrophils (%) (Auto) 72 42-75 % Lymphocytes (%) (Auto) 22 12-44 % Monocytes (%) (Auto) 6 0-12 % Eosinophils (%) (Auto) 0 0-10 % Basophils (%) (Auto) 0 0-10 % Neutrophils # (Auto) 7.5 1.8-7.8 X 10^3 Lymphocytes # (Auto) 2.3 1.0-4.0 X 10^3 Monocytes # (Auto) 0.7 0.0-1.0 X 10^3 Eosinophils # (Auto) 0.0 0.0-0.3 10^3/uL Basophils # (Auto) 0.0 0.0-0.1 10^3/uL Allergies and Home Medications Allergies Coded Allergies: No Known Drug Allergies (Unverified , 11/02/17) Home Medications Cefdinir 300 Mg Capsule, 300 MG PO BID Prescribed by: MARJORIE HERCULES on 11/02/17 1515 Vit W-Ca,Fe,FA(<1 mg) 1 Each Tablet, 1 EACH PO DAILY, (Reported) Patient Home Medication List Home Medication List Reviewed: Yes OB - History Hx of Present Care: Yes Ultrasounds: Normal mid trimester US Obstetrical Complications: Other (HSV outbreak with lesions) Medical Complications: None Patient Past Medical History n/a Social History/Family History Recent Infectious Disease Expo: No OB - Admission Exam Physical Exam HEENT: NCAT Heart: Rhythm Normal Lungs: Clear Abdomen: Gravid Extremities: Normal Reflexes: Normal Heart Rate: 130's Accelerations: Accelerations Present Decelerations: No Decelerations Short Term Variability: Present Usp Variability: Average (6-25) Contractions on Admission: >10 Minutes Apart Intensity: Mild Labs Laboratory Tests Test 02/02/18 20:06 Range/Units White Blood Count 10.4 4.3-11.0 10^3/uL Red Blood Count 3.67 L 4.35-5.85 10^6/uL Hemoglobin 10.8 L 11.5-16.0 G/DL Hematocrit 33 L 35-52 % Mean Corpuscular Volume 89 80-99 FL Mean Corpuscular Hemoglobin 29 25-34 PG Mean Corpuscular Hemoglobin Concent 33 32-36 G/DL Red Cell Distribution Width 13.6 10.0-14.5 % Platelet Count 295 130-400 10^3/uL Mean Platelet Volume 9.8 7.4-10.4 FL Neutrophils (%) (Auto) 72 42-75 % Lymphocytes (%) (Auto) 22 12-44 % Monocytes (%) (Auto) 6 0-12 % Eosinophils (%) (Auto) 0 0-10 % Basophils (%) (Auto) 0 0-10 % Neutrophils # (Auto) 7.5 1.8-7.8 X 10^3 Lymphocytes # (Auto) 2.3 1.0-4.0 X 10^3 Monocytes # (Auto) 0.7 0.0-1.0 X 10^3 Eosinophils # (Auto) 0.0 0.0-0.3 10^3/uL Basophils # (Auto) 0.0 0.0-0.1 10^3/uL OB - Assessment/Plan/Diagnosis Assessment Assessment: section Admission Dx 17-year-old at 39 weeks gestation section for active HSV outbreak Admission Status: Inpatient Order (span 2 midnights) Reason for Inpatient Admission: Plan Plan: Section ANALISA OWENS DO Feb 02, 2018 8:35 pm
[2018-02-02] MEDS ORDERED: ACYC800T PO (21:10)
[2018-02-02] MEDS ORDERED: ceFAZolin 2 GM IV Premixed 50 ML IV ONE (21:15)
[2018-02-02] MEDS ORDERED: ceFAZolin 2 GM IV Premixed 50 ML ONE (21:20)
[2018-02-02] MEDS ORDERED: HYDROmorphone 2 MG/ML VIAL (DILAUDID) IV PRN (21:30)
[2018-02-02] MEDS ORDERED: KETOROLAC 30 MG/ML VIAL IVP SCH (21:30)
[2018-02-02] MEDS ORDERED: TETANUS,DIPTH,PERTUSS P/F (BOOSTRIX) 0.5 ML VIAL IM SCH (21:30)
[2018-02-02] MEDS ORDERED: MEASLES,MUMPS,RUBELLA 1 EA INJ SC SCH (21:30)
[2018-02-02] MEDS ORDERED: ONDANSETRON 4 MG/2 ML (SDV) Z0FRAN IVP PRN ×2 (21:30→23:15)
--- NOTE | 2018-02-02 21:31 | Discharge Inst-Women's Service ---
Discharge Inst-Women's Serv Depart Medication/Instructions New, Converted or Re-Newed RX: RX on Chart Consults/Follow Up Additional Follow Up: Yes Orders/Referrals Dr. Young in 7-[address] Bone in 6 weeks Activity Activity: Activity as Tolerated Driving Instructions: No Driving for 1 Week NO SMOKING: NO SMOKING Nothing Inside Vagina: No Douching, No [place], No Tampons Diet Discharge Diet: No Restrictions Symptoms to Report to : Bleeding Excessive, Pain Increased, Fever Over 101 Degrees F, Vaginal Bleeding Increase, Questions/Concerns For Any Problems or Questions: Contact Your Physician Skin/Wound Care Infection Signs and Symptoms: Increased Redness, Foul Odor of Wound, Increased Drainage, Skin Itchy or Has a Rash, Increased Swelling, Temperature Above 101 F Operative Area Clean and Dry: Keep Incision Clean/Dry Stitches/[place]/Dermabond: Dermabond, Care of Stitches Bathing Instructions: ANALISA Vasques DO Feb 02, 2018 9:31 pm
[2018-02-02] MEDS ORDERED: ACHD5005 PO (21:32)
[2018-02-02] MEDS ORDERED: DOCU100C37 PO (21:32)
[2018-02-02] MEDS ORDERED: IBUP-1773 PO (21:32)
[2018-02-02 21:55] VITALS: BP 129/74
[2018-02-02] MEDS ORDERED: CATHETER FLUSH 10 ML SYR IV SCH (22:00)
[2018-02-02] MEDS ORDERED: ONDANSETRON 4 MG/2 ML (SDV) Z0FRAN ONE (22:04)
[2018-02-02] MEDS ORDERED: fentaNYL INJECTION 100 MCG/2 ML AMP ONE (22:04)
[2018-02-02] MEDS ORDERED: DEXAMETHASONE 10 MG/ML (DECADRON) 1 ML VIAL ONE (22:04)
[2018-02-02] MEDS ORDERED: OXYTOCIN/NORMAL SALINE 1,000 ML IV ONE (22:04)
[2018-02-02] MEDS ORDERED: KETOROLAC 30 MG/ML VIAL ONE (22:05)
[2018-02-02] MEDS ORDERED: ROPIVACAINE 5MG/ML 30ML VIAL ONE (22:05)
[2018-02-02] MEDS ORDERED: PHENYLEPHRINE 100 MCG/ML 10 ML (ANESTHESIA) SYR ONE (22:46)
[2018-02-02] MEDS ORDERED: diphenhydrAMINE 50 MG/ML INJ (BENADRYL) IV PRN (23:15)
[2018-02-02] MEDS ORDERED: MEPERIDINE (DEMEROL) INJ 50 MG/ML IVP ONE (23:15)
[2018-02-02] MEDS ORDERED: NALOXONE 0.4 MG/ML 1 ML (NARCAN) VIAL IV PRN ×2 (23:15)
[2018-02-02] MEDS ORDERED: METOCLOPRAMIDE INJ 10 MG/2 ML (REGLAN) IV PRN (23:15)
[2018-02-02] MEDS ORDERED: ONDANSETRON 4 MG/2 ML (SDV) Z0FRAN IV PRN (23:15)
[2018-02-02] MEDS ORDERED: morphine INJ 10 MG/ML 1ML (SYR OR VIAL) IVP ONE (23:15)
--- NOTE | 2018-02-02 23:39 | OPERATIVE REPORT ---
DATE OF SERVICE: PREOPERATIVE DIAGNOSES: 1. A 17-year-old G1, P0 at 39 weeks and 5 days gestation. 2. Active HSV genital lesion outbreak. POSTOPERATIVE DIAGNOSES: 1. A 17-year-old G1, P0 at 39 weeks and 5 days gestation. 2. Active HSV genital lesion outbreak. 3. Nuchal cord x2. PROCEDURE: Primary low transverse section. SURGEON: Dr. Chester Owens. ANESTHESIA: Spinal. ESTIMATED BLOOD LOSS: 550 mL. URINE OUTPUT: 400 mL clear at the end of procedure. FLUIDS: 1300 mL lactated Ringer solution. FINDINGS: Live female weighing 7 pounds 13 ounces, Apgars of 8 and 9. Grossly normal appearing uterus, bilateral fallopian tubes and ovaries. Double nuchal cord noted. SPECIMENS SENT: None. INDICATION FOR PROCEDURE: This 17-year-old female was a consultation to me from Dr. Bone and admitted to my service due to an active HSV outbreak and concerns of labor occurring due to the fact that she is 39 weeks and 5 days gestation. She had been on suppressive therapy; however, had this outbreak despite suppressive therapy. We discussed with her the risk of delivery vaginally with an outbreak versus proceeding with . After all their questions were answered, we decided to proceed with . Risks of this procedure were discussed with the patient in detail. All of her questions were answered in the preoperative area. Consent was obtained. The patient was taken to the operating room. OPERATIVE REPORT IN DETAIL: Once in the operating room, spinal anesthesia was found to be adequate, she was placed in supine position with a leftward tilt, prepped and draped in normal sterile fashion. Anesthesia was tested. Timeout was performed. I then make a Pfannenstiel skin incision with a knife and carried down to underlying fascia using Bovie cautery. Fascial incision extended laterally with Bovie cautery. Superior aspect of the fascial incision was then grasped with Megan clamps, tented up and dissected off the underlying rectus muscles. The inferior aspect of the fascial incision was then grasped with Megan clamps, tented up and dissected off the underlying rectus muscles. Rectus muscle was then dissected down the midline using Encinas scissors to expose the peritoneum, which I entered bluntly and extended using blunt traction. An Geronimo ring retractor was placed in the peritoneal incision, which offered excellent lateral sidewall retraction. I then proceed with my incision in a low transverse fashion to the vesicouterine peritoneum. Once this was done, I bluntly dissected this off the lower uterine segment. I proceeded with my myotomy until membranes are visualized, at which point, I extended the uterine incision laterally and superiorly using Encinas scissors. Amniotomy was then performed using Allis clamp. Clear fluid was noted. The was found in vertex presentation. With gentle fundal pressure, the 's head is elevated up to the incision where it is delivered through the incision. The nares and oropharynx were bulb suctioned. There was a double nuchal cord reduced. Anterior and posterior shoulders were delivered. The was then brought to the operative field where the cord was doubly clamped and cut. was handed off to the waiting nurses in attendance. Cord blood was collected, 3-vessel cord with intact placenta delivered spontaneously after IV Pitocin was initiated to facilitate uterine contraction. Uterine fundus became firmer with bimanual massage. The uterus was then exteriorized and cleared of all endometrial clots and debris. I then proceeded with closing the uterine incision using 0 Vicryl suture in running locked fashion. Second layer of imbricating 0 Monocryl was placed. Excellent hemostasis was noted after doing this. I then placed the uterus back into the pelvis and copiously irrigated the pelvis using normal saline. Once again, no active bleeding was noted from any of my dissection planes. I placed Interceed antiadhesive over my low transverse incision. I proceeded with closing the peritoneum using 3-0 Vicryl suture in running fashion. The rectus muscle was reapproximated using 0 Vicryl suture in an interrupted fashion. The fascia reapproximated using 0 Vicryl suture in running fashion. Subcutaneous tissue was reapproximated using 3-0 plain in interrupted subcutaneous stitch and skin reapproximated using 4-0 Monocryl running subcuticular. Dermabond was applied to incision. Sterile dressings with adhesive white tape. Two grams of Ancef given preoperatively for infection prophylaxis. The patient tolerated the procedure well and sent to recovery area in stable condition. Lap and sponge counts were correct at the end of the procedure. Job ID: [id number] DocumentID: [id number] Dictated Date: 02/02/2018 23:02:56 Agricultural Equipment Mechanic Date: 02/02/2018 23:39:06 Dictated By: CHESTER OWENS DO
[2018-02-03] VITALS (7 sets, daily range): BP systolic 111–118; BP diastolic 64–70
[2018-02-03] MEDS: OXYTOCIN/NORMAL SALINE 500 ML IV SCH ×2 (00:17→08:31)
[2018-02-03 06:13] LABS: BASOPHILS % (AUTO) 0 % (0-10); EOSINOPHILS % (AUTO) 0 % (0-10); HEMATOCRIT 29 % (35-52); HEMOGLOBIN 9.5 G/DL (11.5-16.0); LYMPHOCYTES # (AUTO) 1.1 X 10^3 (1.0-4.0); LYMPHOCYTES % (AUTO) 7 % (12-44); MEAN CORPUSCULAR HEMOGLOBIN 30 PG (25-34); MEAN CORPUSCULAR HGB CONC 33 G/DL (32-36); MEAN CORPUSCULAR VOLUME 90 FL (80-99); MEAN PLATELET VOLUME 9.6 FL (7.4-10.4); MONOCYTES # (AUTO) 0.6 X 10^3 (0.0-1.0); MONOCYTES % (AUTO) 3 % (0-12); NEUTROPHILS # (AUTO) 14.8 X 10^3 (1.8-7.8); NEUTROPHILS % (AUTO) 90 % (42-75); PLATELET COUNT 259 10^3/uL (130-400); RED CELL DISTRIBUTION WIDTH 13.6 % (10.0-14.5); WHITE BLOOD COUNT 16.4 10^3/uL (4.3-11.0)
[2018-02-03 07:00] LABS: LYMPHOCYTES % (MANUAL) 10 %; MONOCYTES % (MANUAL) 1 %; NEUTROPHILS % (MANUAL) 89 %
--- NOTE | 2018-02-03 07:15 | Anesthesia-Regional Post-Op ---
Regional Patient Condition Mental Status: Alert, Oriented x3 Circulation: Same as Pre-Op Headache: Absent Sensation: Full Recovery Motor Block: Absent Post Op Complications Complications None Follow Up Care/Instructions Patient Instructions None needed. Anesthesia/Patient Condition Patient is doing well, no complaints, stable vital signs, no apparent adverse anesthesia problems. No complications reported per nursing. [place] [facility]: No ANA TAVERA CRNA Feb 03, 2018 07:15
--- NOTE | 2018-02-03 08:15 | Postpartum Progress Note ---
Note Note Day # 1 Subjective: Patient is without complaints. Ambulating, voiding. Tolerating a regular diet without nausea or vomiting. Normal lochia. Pain is well controlled with oral pain medications. Objective: Vital Sign - Last 24 Hours 02/02/18 02/02/18 02/02/18 02/02/18 19:48 19:58 20:00 20:25 Temp 97.1 Pulse 94 72 77 85 Resp 18 18 18 18 B/P (MAP) 124/75 (91) 79/45 (56) 103/54 (70) 138/67 (90) 02/02/18 02/03/18 02/03/18 02/03/18 21:55 00:45 01:30 05:48 Temp 97.8 97.8 97.4 Pulse 93 85 90 97 Resp 18 18 18 B/P (MAP) 129/74 (92) 111/66 (81) 112/70 (84) 116/69 (85) Pulse Ox 97 O2 Delivery Room Air Room Air Intake and Output 02/02/18 02/02/18 02/03/18 15:00 23:00 07:00 Intake Total 50 ml 1500 ml Output Total 400 ml 400 ml Balance -350 ml 1100 ml Physical Exam: General - Alert and oriented, no apparent distress Abdomen - Soft, appropriately tender to palpation, non-distended, fundus firm at umbilicus Extremities - no edema, negative Ajay's bilaterally Incision- c/d/i Assessment: POD 1 PLTCS HSV outbreak Plan: Routine care. Encourage breast feeding. Encourage ambulation. Ferrous sulfate supplementation. Plan for discharge later today Vitals - Labs Vital Signs - I&O Vital Signs Date Time Temp Pulse Resp B/P (MAP) Pulse Ox O2 Delivery O2 Flow Rate FiO2 02/03/18 05:48 97.4 97 18 116/69 (85) Room Air 02/03/18 01:30 97.8 90 18 112/70 (84) 97 Room Air 02/03/18 00:45 97.8 85 18 111/66 (81) 02/02/18 21:55 93 18 129/74 (92) 02/02/18 20:25 97.1 85 18 138/67 (90) 02/02/18 20:00 77 18 103/54 (70) 02/02/18 19:58 72 18 79/45 (56) 02/02/18 19:48 94 18 124/75 (91) I & O 02/03/18 07:00 Intake Total 1550 ml Output Total 800 ml Balance 750 ml Labs Laboratory Tests 02/02/18 20:06: White Blood Count 10.4, Red Blood Count 3.67L, Hemoglobin 10.8L, Hematocrit 33L , Mean Corpuscular Volume 89, Mean Corpuscular Hemoglobin 29, Mean Corpuscular Hemoglobin Concent 33, Red Cell Distribution Width 13.6, Platelet Count 295, Mean Platelet Volume 9.8, Neutrophils (%) (Auto) 72, Lymphocytes (%) (Auto) 22, Monocytes (%) (Auto) 6, Eosinophils (%) (Auto) 0, Basophils (%) (Auto) 0, Neutrophils # (Auto) 7.5, Lymphocytes # (Auto) 2.3, Monocytes # (Auto) 0.7, Eosinophils # (Auto) 0.0, Basophils # (Auto) 0.0 02/03/18 05:53: White Blood Count 16.4H, Red Blood Count 3.20L, Hemoglobin 9.5L, Hematocrit 29L , Mean Corpuscular Volume 90, Mean Corpuscular Hemoglobin 30, Mean Corpuscular Hemoglobin Concent 33, Red Cell Distribution Width 13.6, Platelet Count 259, Mean Platelet Volume 9.6, Neutrophils (%) (Auto) 90H, Lymphocytes (%) (Auto) 7L , Monocytes (%) (Auto) 3, Eosinophils (%) (Auto) 0, Basophils (%) (Auto) 0, Neutrophils # (Auto) 14.8H, Lymphocytes # (Auto) 1.1, Monocytes # (Auto) 0.6, Eosinophils # (Auto) 0.0, Basophils # (Auto) 0.0, Neutrophils % (Manual) 89, Lymphocytes % (Manual) 10, Monocytes % (Manual) 1 ANALISA OWENS DO Feb 03, 2018 8:15 am
[2018-02-03] MEDS: DOCUSATE SODIUM 100 MG (COLACE) CAP PO SCH ×2 (10:12→20:42)
[2018-02-03] MEDS: IBUPROFEN 600 MG (MOTRIN) TAB PO SCH ×3 (11:55→22:59)
[2018-02-03] MEDS: HYDROcodone/APAP 5 MG/325 MG (LORTAB) TAB PO PRN ×2 (13:02→20:42)
[2018-02-04 03:20] VITALS: BP 107/66
[2018-02-04] MEDS: IBUPROFEN 600 MG (MOTRIN) TAB PO SCH ×2 (05:30→12:30)
[2018-02-04] MEDS: HYDROcodone/APAP 5 MG/325 MG (LORTAB) TAB PO PRN (05:30)
[2018-02-04 09:07] VITALS: BP 114/68
[2018-02-04] MEDS: DOCUSATE SODIUM 100 MG (COLACE) CAP PO SCH (09:09)
--- NOTE | 2018-02-04 09:18 | Postpartum Progress Note ---
Note Note Day # 2 Subjective: Patient is without complaints. Ambulating, voiding. Tolerating a regular diet without nausea or vomiting. Normal lochia. Pain is well controlled with oral pain medications. Objective: Vital Signs 02/04/18 09:07 Temp 98.0 Pulse 75 Resp 18 B/P (MAP) 114/68 (83) Pulse Ox 98 O2 Delivery Room Air Physical Exam: General - Alert and oriented, no apparent distress Abdomen - Soft, appropriately tender to palpation, non-distended, fundus firm at umbilicus Extremities - no edema, negative Ajay's bilaterally Incision- c/d/i Assessment: POD 2 PLTCS Plan: Routine care. Encourage breast feeding. Encourage ambulation. Ferrous sulfate supplementation. Plan for discharge today Vitals - Labs Vital Signs - I&O Vital Signs Date Time Temp Pulse Resp B/P (MAP) Pulse Ox O2 Delivery O2 Flow Rate FiO2 02/04/18 09:07 98.0 75 18 114/68 (83) 98 Room Air 02/04/18 03:20 97.6 84 18 107/66 (80) 99 Room Air 02/03/18 20:42 96.8 101 18 116/69 (85) 100 Room Air 02/03/18 16:29 98.2 83 16 115/66 (82) 100 Room Air 02/03/18 11:25 97.4 86 18 112/69 (83) 99 Room Air 02/03/18 10:12 97.2 82 16 118/64 (82) 99 Room Air ANALISA OWENS DO Feb 04, 2018 9:18 am
== END 2018-02-04 13:30 | disposition home or self-care (01) | DRG 788 ==
LOC: LDRP 18:42
PROVIDERS: ADMIT Obstetrics & Gynecology; ATTEND Obstetrics & Gynecology
PROC: 10D00Z1 Extraction of Products of Conception, Low, Open Approach (ICD-10-PCS; principal; 2018-02-03)
DX: O98.32 Other infections with a predominantly sexual mode of transmission complicating childbirth (principal); O69.81X0 Labor and delivery complicated by cord around neck, without compression, not applicable or unspecified; Z37.0 Single live birth; Z3A.39 39 weeks gestation of pregnancy
CPT/HCPCS: 36415; 85007; 85025; 85027; 86850; 86900; 86901; 94664

== ENCOUNTER 2020-02-15 07:00 | Day surgery (SDC) | payer SELFPAY ==
[~2020-02-15] VITALS: Ht 157.5 cm; Wt 80.9 kg
[2020-02-15] VITALS (17 sets, daily range): BP systolic 93–126; BP diastolic 54–85
[~2020-02-15 07:00] MED LIST changes: +ACHD5005 PO; +ACYC800T PO; +DOCU100C37 PO; +IBUP-1773 PO
[2020-02-15] MEDS ORDERED: proPOfol 200 MG/20 ML (DIPRIVAN) VIAL IV ONE (07:35)
[2020-02-15] MEDS ORDERED: GLYCOPYRROLATE 0.2 MG/ML (ROBINUL) 2 ML VIAL ONE (07:35)
[2020-02-15] MEDS ORDERED: ONDANSETRON 4 MG/2 ML (SDV) Z0FRAN ONE (07:35)
[2020-02-15] MEDS ORDERED: ROCURONIUM 10 MG/ML 5 ML SYRINGE IV ONE (07:35)
[2020-02-15] MEDS ORDERED: NEOSTIGMINE 3 MG/3 ML VIAL ONE (07:35)
[2020-02-15] MEDS ORDERED: SEVOFLURANE (ULTANE) 15 ML INHAL SOLN ONE ×2 (07:35→10:12)
[2020-02-15] MEDS ORDERED: LIDOCAINE PF 2% 5 ML (XYLOCAINE) VIAL ONE (07:35)
[2020-02-15] MEDS ORDERED: fentaNYL INJECTION 100 MCG/2 ML AMP ONE (07:36)
[2020-02-15] MEDS ORDERED: MIDAZOLAM 2 MG/2 ML (VERSED) VIAL ONE (07:37)
[2020-02-15 07:41] LABS: BASOPHILS % (AUTO) 0 % (0-10); EOSINOPHILS # (AUTO) 0.1 10^3/uL (0.0-0.3); EOSINOPHILS % (AUTO) 1 % (0-10); HEMATOCRIT 37 % (35-52); HEMOGLOBIN 12.6 g/dL (11.5-16.0); LYMPHOCYTES # (AUTO) 3.5 10^3/uL (1.0-4.0); LYMPHOCYTES % (AUTO) 34 % (12-44); MEAN CORPUSCULAR HEMOGLOBIN 30 pg (25-34); MEAN CORPUSCULAR HGB CONC 34 g/dL (32-36); MEAN CORPUSCULAR VOLUME 88 fL (80-99); MEAN PLATELET VOLUME 9.6 fL (9.0-12.2); MONOCYTES # (AUTO) 0.5 10^3/uL (0.0-1.0); MONOCYTES % (AUTO) 5 % (0-12); NEUTROPHILS # (AUTO) 6.1 10^3/uL (1.8-7.8); NEUTROPHILS % (AUTO) 59 % (42-75); PLATELET COUNT 323 10^3/uL (130-400); WHITE BLOOD COUNT 10.3 10^3/uL (4.3-11.0)
[2020-02-15] MEDS: LACTATED RINGERS 1,000 ML IV PRN ×2 (07:46→09:21)
--- NOTE | 2020-02-15 07:52 | Progress Note-Pre Operative ---
Pre-Operative Progress Note H&P Reviewed The H&P was reviewed, patient examined and no changes noted. Date Seen by Provider: Feb 15, 2020 Time Seen by Provider: 08:15 Date H&P Reviewed: Feb 15, 2020 Time H&P Reviewed: 08:15 Pre-Operative Diagnosis: Missed ANALISA Maki DO Feb 15, 2020 07:52
[2020-02-15] MEDS ORDERED: ACHD5005 PO (07:55)
[2020-02-15] MEDS ORDERED: IBUP-1773 PO (07:55)
--- NOTE | 2020-02-15 07:55 | Discharge Inst-Women's Service ---
Discharge Inst-Women's Serv Depart Medication/Instructions New, Converted or Re-Newed RX: RX on Chart Problems Reviewed?: Yes Consults/Follow Up Additional Follow Up: Yes Orders/Referrals Dr. Young in 2-3 weeks Activity Activity: Activity as Tolerated Driving Instructions: No Driving for 1 Week NO SMOKING: NO SMOKING Nothing Inside Vagina: No Douching, No [place], No Tampons Diet Discharge Diet: No Restrictions Symptoms to Report to : Bleeding Excessive, Pain Increased, Fever Over 101 Degrees F, Vaginal Bleeding Increase, Questions/Concerns For Any Problems or Questions: Contact Your Physician Skin/Wound Care Infection Signs and Symptoms: Increased Redness, Foul Odor of Wound, Increased Drainage, Skin Itchy or Has a Rash, Increased Swelling, Temperature Above 101 F Operative Area Clean and Dry: Keep Incision Clean/Dry Stitches/[place]/Dermabond: Dermabond, Care of Stitches Bathing Instructions: ANALISA Vasques DO Feb 15, 2020 07:54
[2020-02-15] MEDS ORDERED: HYDROcodone/APAP 5 MG/325 MG (LORTAB) TAB PO PRN (08:00)
[2020-02-15] MEDS ORDERED: ONDANSETRON 4 MG/2 ML (SDV) Z0FRAN IVP PRN ×2 (08:00→09:45)
[2020-02-15] MEDS ORDERED: KETOROLAC 30 MG/ML VIAL IVP ONE (08:00)
[2020-02-15] MEDS ORDERED: METHYLERGONOVINE 0.2 MG/ML (METHERGINE) AMP ONE (09:44)
[2020-02-15] MEDS ORDERED: morphine INJ 10 MG/ML 1ML (SYR OR VIAL) IVP ONE (09:45)
[2020-02-15] MEDS ORDERED: KETOROLAC 30 MG/ML VIAL ONE (10:21)
[2020-02-15] MEDS ORDERED: NS IV 1000 ML 1,000 ML IV SCH (10:45)
[2020-02-15] MEDS: D5 LR IV SOLUTION 1,000 ML IV SCH ×2 (11:04→14:33)
--- NOTE | 2020-02-15 12:30 | NUR ---
PATIENT SAT UP ON SIDE OF BED WITH FEET DANGLING AND INFORMED THIS RN THAT PATIENT FELT DIZZY AND SCANT AMOUNT OF EMESIS. THIS RN HAD PATIENT LAY BACK SEMI FOWLERS IN BED TO REST. PATIENT REQUESTED AT 1245 TO GO TO BATHROOM. THIS RN TOOK PATIENT TO BATHROOM AND INFORMED TO PULL RED CORD IF NEEDS HELP. PATIENT PULLED RED CORD ABOUT 5 MINUTES AFTER AND HAD ALREADY FLUSHED TOILET SO THIS RN COULDN'T SEE AMOUNT OF ANY BLOOD, PATIENT HAD SCANT AMOUNT ON PAD. PATIENT SAT SELF ON FLOOR PRIOR TO THIS RN ARRIVAL. PATIENT IS A/O, PALE, FATIGUED AND REPORTS FEELING LIKE SHE WILL PASS OUT. THIS RN AND HOME SALES CONSULTANT PUT PATIENT IN WHEELCHAIR AND TOOK [place] [facility] [place]. ICE CHIPS, SANDWICH TRAY, ORANGE JUICE AND SPRITE GIVEN TO PATIENT. THIS RN PLACED FLUIDS BACK ON PATIENT VITAL SIGNS TRENDING DOWN SLOWLY SEE INTERVENTIONS. THIS RN PHONED DR. OWENS AT 1240 TO INFORM OF PATIENT'S VITAL SIGNS AND ABOVE. GAVE TELEPHONE ORDER FOR CBC STAT AND TO FEED PATIENT. AT [address] OWENS BACK WITH CBC RESULTS AND GAVE TELEPHONE ORDER TO KEEP FOR OBSERVATION: REGULAR DIET, D5/LR @ 120ML, ZOFRAN 4MG Q4H PRN, MOTRIN 600ME Q6H PRN. THIS RN PHONED ERP TECHNICAL LEAD KRISTEN AND SHE INFORMED TO CALL WOMAN'S SERVICES FOR ROOM. THIS RN PHONED LILY LAUREN AND SHE SAID TO ADMIT TO 305. THIS RN TOOK PATIENT TO 305 AT 1430 AND GAVE REPORT TO LILY LAUREN.
[2020-02-15] MEDS ORDERED: ONDANSETRON 4 MG/2 ML (SDV) Z0FRAN IVP ONE (12:45)
[2020-02-15 13:06] LABS: HEMOGLOBIN 8.2 g/dL (11.5-16.0); MEAN PLATELET VOLUME 9.6 fL (9.0-12.2); WHITE BLOOD COUNT 21.3 10^3/uL (4.3-11.0)
--- NOTE | 2020-02-15 13:58 | Anesthesia-General Post-Op ---
General Patient Condition Nausea/Vomiting: Present (Better currently after ondansetron 8 mg IV, tolerating lunch without nausea) Post Op Complications Complications None Follow Up Care/Instructions Patient Instructions None needed. Anesthesia/Patient Condition Patient Condition Patient got light-headed when she got up to use the restroom. Dr Young rechecked CBC and decided to keep her on an observation status. She is currently doing well, no complaints, stable vital signs, no apparent adverse anesthesia problems. JACQUELYN PARKER DO Feb 15, 2020 13:58
--- NOTE | 2020-02-15 14:30 | NUR ---
Pt to [facility] room 305 via cart by Carmen BAUTISTA. Report received from Carmen BAUTISTA at this time.
[2020-02-15] MEDS: IBUPROFEN 600 MG (MOTRIN) TAB PO PRN ×2 (14:32→20:39)
--- NOTE | 2020-02-15 18:40 | OPERATIVE REPORT ---
DATE OF SERVICE: 02/15/2020 PREOPERATIVE DIAGNOSES: 1. A 19-year-old at 13 weeks' gestation. 2. Missed . POSTOPERATIVE DIAGNOSES: 1. A 19-year-old at 13 weeks' gestation. 2. Missed . PROCEDURE PERFORMED: Suction D and C. SURGEON: Analisa Owens DO ANESTHESIA: LMA general. ESTIMATED BLOOD LOSS: 2000 mL. FLUIDS: 1500 mL lactated Ringer's solution. URINE OUTPUT: 125 mL clear drained at the start of the procedure. SPECIMEN SENT: Products of conception. INDICATIONS FOR PROCEDURE: This patient was consulted over to my office from the [facility] after finding of absent cardiac activity at 13 weeks and a diagnosis of missed AB. I counseled the patient in the preoperative consultation about the situation as well as the recommended suction D and C versus spontaneous miscarriage, which could involve significant hemorrhage at home. Risks of the procedure were discussed with the patient in detail including risk of bleeding, infection, damage to surrounding structures including, but not limited to uterus itself. After everything was discussed with the patient in detail, consent was obtained in the preoperative area, the patient was taken to the operating room. OPERATIVE REPORT IN DETAIL: Once in the operating room, anesthesia was found to be adequate. She was placed in dorsal lithotomy position, prepped and draped in normal sterile fashion. Timeout was performed. The bladder was drained using straight catheterization. A weighted speculum was inserted into the patient's vagina. A right angle retractor was used to visualize the cervix, which was grasped at 12 o'clock position using a long single-tooth tenaculum. I then placed two ligating sutures at 3 o'clock and 9 o'clock positions on the cervix using 3-0 Vicryl suture. This was placed to control bleeding throughout the procedure as I anticipated a heavy blood loss. Once both these sutures were placed, I then gently sound the uterine cavity, depth was found to be approximately 15 cm. I selected a 16 mm [place] suction curette and dilated the cervix to 1.5 cm dilation using Hegar dilators. Once dilation was achieved, I placed the suction curette into the uterine cavity and applied suction using the [place] [facility] curet to a maximum suction of approximately 65 mmHg, at which point I performed a suction curettage methodically circulating the suction Rai curette clearing all of the endometrial cavity of all products of conception. This was done on several passes. I also using blunt instrumentation using ring forceps to remove the tissue as well. A gentle uterine cry is appreciated with a sharp curettage. I then performed one final pass with the suction curette after which bleeding has significantly slowed down and 0.2 mg of Methergine however, was given due to significant amount of bleeding during the procedure, but at the end of the procedure, the bleeding had slowed down. Instruments were removed from the patient's vagina. The patient tolerated the procedure well and sent to recovery in stable condition. Lap and sponge counts were correct at the end of the procedure. Instrument counts correct as well. Job ID: [id number] DocumentID: [id number] Dictated Date: 02/15/2020 11:02:10 Accountancy Professor Date: 02/15/2020 18:39:14 Dictated By: ANALISA OWENS DO
--- NOTE | 2020-02-15 19:06 | NUR ---
report to lyn meyers at this time
[2020-02-16 00:55] VITALS: BP 118/61
[2020-02-16 04:55] VITALS: BP 118/64
[2020-02-16] MEDS: IBUPROFEN 600 MG (MOTRIN) TAB PO PRN (04:57)
--- NOTE | 2020-02-16 08:30 | NUR ---
Dr. Young here to see patient. New orders received.
[2020-02-16 09:16] VITALS: BP 111/62
--- NOTE | 2020-02-16 09:16 | NUR ---
AM shift assessment completed and vital signs obtained, see interventions. Plan of care reviewed with patient. Patient verbalizes understanding and questions answered.
--- NOTE | 2020-02-16 09:20 | NUR ---
Saline lock DC'd, tip intact. Band-aid applied to site.
--- NOTE | 2020-02-16 09:25 | NUR ---
Discharge instructions and medications reviewed with patient both written and verbally. Patient verbalizes understanding and questions answered. Written prescriptions provided to patient.
--- NOTE | 2020-02-16 09:32 | NUR ---
Patient discharged at this time via wheelchair and accompanied down to awaiting private vehicle by this RN. No signs or symptoms of distress noted.
--- NOTE | 2020-02-17 20:37 | NUR ---
Notified patient of positive COVID test. Answered questions.
== END 2020-02-16 09:32 | disposition home or self-care (01) ==
LOC: SDC 07:00 → WS 13:32 → SDC 02-16 09:32
PROVIDERS: ATTEND Obstetrics & Gynecology
DX: O02.1 Missed abortion (principal)
CPT/HCPCS: 59820; 85025; 85027; 86850; 86900; 86901; 87081; 94664; U0002; 36415; 87635

== ENCOUNTER 2021-03-03 05:29 | Outpatient (CLI) | payer MEDICAID ==
[~2021-03-03] VITALS: Ht 157.5 cm; Wt 90.9 kg
[~2021-03-03 05:29] MED LIST changes: +ACYC-112 PO; -ACYC800T PO
[2021-03-03] MEDS ORDERED: PREN1TAB79 PO (14:53)
[2021-03-03] MEDS ORDERED: FERR-84 PO (14:53)
[2021-03-03] MEDS ORDERED: VALA500T7 PO (14:53)
== END 2021-03-03 15:00 | disposition home or self-care (01) ==
LOC: PREOP 05:29
PROVIDERS: ATTEND Obstetrics & Gynecology
DX: Z01.818 Encounter for other preprocedural examination (principal)

== ENCOUNTER 2021-03-10 13:00 | Inpatient (IN) | payer MEDICAID ==
[~2021-03-10] VITALS: Ht 157.5 cm; Wt 93.4 kg
[~2021-03-10 13:00] MED LIST changes: +FERR-84 PO; +PREN1TAB79 PO; +VALA500T7 PO
[2021-03-12] VITALS (10 sets, daily range): BP systolic 92–156; BP diastolic 56–81
[2021-03-12] MEDS ORDERED: FAMOTIDINE 20MG/2ML IV (PEPCID) IV ONE (06:15)
[2021-03-12] MEDS ORDERED: METOCLOPRAMIDE INJ 10 MG/2 ML (REGLAN) IV ONE (06:15)
[2021-03-12] MEDS ORDERED: CITRIC ACID/SOB CIT (BICITRA) 30 ML UDC PO ONE (06:15)
[2021-03-12] MEDS ORDERED: LACTATED RINGERS 1,000 ML IV SCH (06:15)
[2021-03-12] MEDS ORDERED: ceFAZolin 2 GM IV Premixed 50 ML IV ONE (06:15)
[2021-03-12 06:44] LABS: BASOPHILS % (AUTO) 0 % (0-10); EOSINOPHILS # (AUTO) 0.1 10^3/uL (0.0-0.3); EOSINOPHILS % (AUTO) 1 % (0-10); HEMATOCRIT 33 % (35-52); HEMOGLOBIN 10.5 g/dL (11.5-16.0); LYMPHOCYTES # (AUTO) 2.3 10^3/uL (1.0-4.0); LYMPHOCYTES % (AUTO) 24 % (12-44); MEAN CORPUSCULAR HEMOGLOBIN 29 pg (25-34); MEAN CORPUSCULAR HGB CONC 32 g/dL (32-36); MEAN CORPUSCULAR VOLUME 89 fL (80-99); MEAN PLATELET VOLUME 9.9 fL (9.0-12.2); MONOCYTES # (AUTO) 0.6 10^3/uL (0.0-1.0); MONOCYTES % (AUTO) 6 % (0-12); NEUTROPHILS # (AUTO) 6.7 10^3/uL (1.8-7.8); NEUTROPHILS % (AUTO) 69 % (42-75); PLATELET COUNT 230 10^3/uL (130-400); WHITE BLOOD COUNT 9.6 10^3/uL (4.3-11.0)
[2021-03-12] MEDS: LACTATED RINGERS 1,000 ML IV SCH ×2 (07:08→07:50)
[2021-03-12] MEDS ORDERED: OXYTOCIN PRE-MIX DRIP 1,000 ML IV ONE (07:09)
[2021-03-12] MEDS ORDERED: fentaNYL INJ 100 MCG/2 ML AMP ONE (07:09)
--- NOTE | 2021-03-12 07:15 | History & Physical-OB ---
OB - Chief Complaint & HPI Date/Time Date of Admission: Date of Admission: Mar 12, 2021 at 05:55 Date seen by a Provider: Mar 12, 2021 Time Seen by a Provider: 07:05 Chief Complaint/History OB-Reason for Admission/Chief: Section Hx : 3 Hx Para: 1 Expected Date of Delivery: Mar 17, 2021 Gestational Age in Weeks: 39 Gestational Age in Days: 2 Indication for : desires repeat Admission Nurse Assessment Rev: Yes History of Labs A neg Antibody neg RI RPR NR HBsAg NR HIV NR GC neg Allergies and Home Medications Allergies Coded Allergies: No Known Drug Allergies (Unverified , 02/15/20) Patient Home Medication List Home Medication List Reviewed: Yes Ferrous Sulfate (Iron) 325 Mg Tablet, 325 MG PO DAILY, (Reported) Entered as Reported by: ANGEL MOSCOSO on 03/03/211452 Vit W-Ca,Fe,FA(<1 mg) ( Vitamins) 1 Each Tablet, 1 EACH PO DAILY, (Reported) Entered as Reported by: ANGEL MOSCOSO on 03/03/211452 Valacyclovir HCl (Valacyclovir) 500 Mg Tablet, 500 MG PO DAILY, (Reported) Entered as Reported by: ANGEL MOSCOSO on 03/03/211452 OB - History Hx of Present Care: Yes Ultrasounds: Normal mid trimester US Obstetrical Complications: None Medical Complications: None Delivery History Adverse Rxn to Tranfusion: No Patient Past Medical History n/a Immunizations Date of Influenza Vaccine: Jan 23, 2021 OB - Admission Exam Physical Exam Vitals: Vital Signs HEENT: NCAT Heart: Rhythm Normal Lungs: Crackles Abdomen: Gravid Extremities: Normal Reflexes: Normal Membranes: Intact Heart Rate: 130's Accelerations: Accelerations Present Decelerations: No Decelerations Short Term Variability: Present Chcf Variability: Average (6-25) Contractions on Admission: 6-10 Minutes Apart Intensity: Mild Labs Laboratory Tests Test 03/12/21 06:35 Range/Units White Blood Count 9.6 4.3-11.0 10^3/uL Red Blood Count 3.69 L 3.80-5.11 10^6/uL Hemoglobin 10.5 L 11.5-16.0 g/dL Hematocrit 33 L 35-52 % Mean Corpuscular Volume 89 80-99 fL Mean Corpuscular Hemoglobin 29 25-34 pg Mean Corpuscular Hemoglobin Concent 32 32-36 g/dL Red Cell Distribution Width 14.9 H 10.0-14.5 % Platelet Count 230 130-400 10^3/uL Mean Platelet Volume 9.9 9.0-12.2 fL Immature Granulocyte % (Auto) 0 % Neutrophils (%) (Auto) 69 42-75 % Lymphocytes (%) (Auto) 24 12-44 % Monocytes (%) (Auto) 6 0-12 % Eosinophils (%) (Auto) 1 0-10 % Basophils (%) (Auto) 0 0-10 % Neutrophils # (Auto) 6.7 1.8-7.8 10^3/uL Lymphocytes # (Auto) 2.3 1.0-4.0 10^3/uL Monocytes # (Auto) 0.6 0.0-1.0 10^3/uL Eosinophils # (Auto) 0.1 0.0-0.3 10^3/uL Basophils # (Auto) 0.0 0.0-0.1 10^3/uL Immature Granulocyte # (Auto) 0.0 0.0-0.1 10^3/uL OB - Assessment/Plan/Diagnosis Assessment Assessment: section Admission Dx 21 yo @ 39 weeks Previous Admission Status: Inpatient Order (span 2 midnights) Reason for Inpatient Admission: Repeat Plan Plan: Section ANALISA OWENS DO Mar 12, 2021 07:15
--- NOTE | 2021-03-12 07:23 | Discharge Inst-Women's Service ---
Discharge Inst-Women's Serv Depart Medication/Instructions New, Converted or Re-Newed RX: Transmitted to Pharmacy Problems Reviewed?: Yes Consults/Follow Up Additional Follow Up: Yes Activity Activity: Activity as Tolerated Driving Instructions: No Driving for 1 Week NO SMOKING: NO SMOKING Nothing Inside Vagina: No Douching, No [place], No Tampons Diet Discharge Diet: No Restrictions Symptoms to Report to DrHugo: Bleeding Excessive, Pain Increased, Fever Over 101 Degrees F For Any Problems or Questions: Contact Your Physician Skin/Wound Care Infection Signs and Symptoms: Increased Redness, Foul Odor of Wound, Increased Drainage, Skin Itchy or Has a Rash, Increased Swelling, Temperature Above 101 F Operative Area Clean and Dry: Keep Incision Clean/Dry Stitches/[place]/Dermabond: Dermabond, Care of Stitches Bathing Instructions: ANALISA Vasques DO Mar 12, 2021 07:23
[2021-03-12] MEDS ORDERED: ACHD5005 PO (07:27)
[2021-03-12] MEDS ORDERED: DOCU100C37 PO (07:27)
[2021-03-12] MEDS ORDERED: IBUP-844 PO (07:27)
[2021-03-12] MEDS ORDERED: NALOXONE 0.4 MG/ML 1 ML (NARCAN) VIAL IV PRN (07:30)
[2021-03-12] MEDS ORDERED: TETANUS,DIPTH,PERTUSS P/F (BOOSTRIX) 0.5 ML VIAL IM SCH (07:30)
[2021-03-12] MEDS ORDERED: MEASLES,MUMPS,RUBELLA 1 EA INJ SC SCH (07:30)
[2021-03-12] MEDS ORDERED: ONDANSETRON 4 MG/2 ML (SDV) Z0FRAN IVP PRN (07:30)
[2021-03-12] MEDS ORDERED: PHENYLEPHRINE 100 MCG/ML 10 ML (ANESTHESIA) SYR ONE (07:31)
[2021-03-12] MEDS ORDERED: BUPIVACAINE 0.5% 30 ML (SENSORCAINE) VIAL ONE (08:12)
[2021-03-12] MEDS: OXYTOCIN PRE-MIX DRIP 500 ML IV SCH ×2 (08:36→10:29)
--- NOTE | 2021-03-12 09:32 | OPERATIVE REPORT ---
DATE OF SERVICE: 03/12/2021 PREOPERATIVE DIAGNOSES: 1. A 21-year-old G3, P1 at 39 weeks and 2 days gestation. 2. Previous section. POSTOPERATIVE DIAGNOSES: 1. A 21-year-old G3, P1 at 39 weeks and 2 days gestation. 2. Previous section. PROCEDURE: Repeat low transverse section. SURGEON: Chester Owens DO ANESTHESIA: Spinal. ESTIMATED BLOOD LOSS: 500 mL. URINE OUTPUT: 75 mL clear at the end of the procedure. FLUIDS: 2600 mL lactated Ringer's solution. FINDINGS: A live female weighing 7 pounds 14 ounces, Apgars of 8 and 9. Grossly normal appearing uterus, bilateral fallopian tubes and ovaries. SPECIMEN SENT: None. INDICATIONS FOR PROCEDURE: This is a 21-year-old female is a patient who had sought her care at [facility]. She was referred to me for repeat in her preoperative consultation, the risk of were reviewed with the patient in detail including risk of bleeding, infection, damaging surrounding structures including, but not limited to bowel, bladder, ureter, kidneys, possible need for operation, postoperative complications that could occur, risk from anesthesia and even . After everything was discussed with the patient in the preoperative area, consent was obtained, the patient was taken to the operating room. OPERATIVE REPORT IN DETAIL: Once in the operating room, spinal anesthesia was found to be adequate. She was placed in supine position with leftward tilt, prepped and draped in normal sterile fashion where a timeout was performed and anesthesia was tested. I then make a Pfannenstiel skin incision with a knife and carried down to underlying fascia using with Bovie cautery. The fascial incision extended laterally using Bovie cautery. Superior aspect of fascial incision was then grasped with Megan clamps, tented up and dissected off the underlying rectus muscles. The inferior aspect of fascial incision was then grasped with Megan clamps, tented up and dissected off the underlying rectus muscles. Rectus muscles were then dissected down the midline using Encinas scissors, which exposed the peritoneum, which I entered bluntly and extended using blunt traction. Geronimo ring retractor was placed in the peritoneal incision, which offered excellent lateral sidewall retraction. I identified the lower uterine segment, which was found to be thinned out and make a low transverse incision to the vesicouterine peritoneum and bluntly dissected off the lower uterine segment, creating a bladder flap. I then proceeded with my myotomy until membranes are encountered. Clear fluid was noted. The uterine incision extended laterally and superiorly using bandage scissors. The infant was found in vertex presentation. With gentle fundal pressure, the infant's head was elevated and delivered through the incision. The nares and oropharynx were bulb suctioned. There is a tight nuchal cord and intact was delivered through the tight nuchal cord and brought out to the abdomen where the cord was duly clamped and cut and infant was handed off to waiting nurses in attendance. Cord blood was collected, 3-vessel cord with intact placenta delivered spontaneously thereafter. IV Pitocin is initiated to facilitate uterine contraction. Uterine fundus confirmed by manual massage. The uterus was then exteriorized and cleared of all endometrial clots and debris. I then proceeded with closing the uterine incision using 0 Vicryl suture in a running locked fashion. Second layer of imbricating 0 Monocryl was placed. Excellent hemostasis was noted after doing this. I then placed the uterus back in the pelvis and copiously irrigated the pelvis using normal saline. Once again, there was no active bleeding noted from any of my dissection planes. I placed Interceed antiadhesive over my low transverse incision. I then removed the Geronimo ring retractor and proceeded with closing the peritoneum using 3-0 Vicryl suture in a running fashion. The rectus muscle reapproximated using 3-0 Vicryl suture in interrupted fashion. The fascia was reapproximated using 0 Vicryl suture in running fashion. Subcutaneous tissue was reapproximated using 3-0 plain interrupted subcutaneous stitch and the skin was reapproximated using 4-0 Monocryl running subcuticular. Dermabond was applied to incision and sterile dressing with adhesive white tape. The patient tolerated the procedure well and sent to recovery area in stable condition. Lap and sponge counts were correct at the end of the procedure. Instrument counts were correct as well. Two grams of Ancef given preoperatively for infection prophylaxis. Job ID: [id number] DocumentID: [id number] Dictated Date: 03/12/2021 08:46:35 Health Care Technician Date: 03/12/2021 09:31:06 Dictated By: CHESTER OWENS DO
[2021-03-12] MEDS: KETOROLAC 30 MG/ML VIAL IV SCH ×3 (10:13→23:11)
[2021-03-12] MEDS: CATHETER FLUSH 10 ML SYR IV SCH ×2 (20:00→23:11)
[2021-03-12] MEDS: DOCUSATE SODIUM 100 MG (COLACE) CAP PO SCH ×2 (20:00→20:33)
[2021-03-12] MEDS: HYDROcodone/APAP 5 MG/325 MG (LORTAB) TAB PO PRN (20:35)
[2021-03-13 05:00] VITALS: BP 121/67
[2021-03-13] MEDS: KETOROLAC 30 MG/ML VIAL IV SCH (05:01)
[2021-03-13] MEDS: CATHETER FLUSH 10 ML SYR IV SCH (05:01)
[2021-03-13 06:17] LABS: BASOPHILS % (AUTO) 0 % (0-10); EOSINOPHILS % (AUTO) 0 % (0-10); HEMATOCRIT 28 % (35-52); HEMOGLOBIN 8.8 g/dL (11.5-16.0); LYMPHOCYTES # (AUTO) 1.9 10^3/uL (1.0-4.0); LYMPHOCYTES % (AUTO) 18 % (12-44); MEAN CORPUSCULAR HEMOGLOBIN 28 pg (25-34); MEAN CORPUSCULAR HGB CONC 31 g/dL (32-36); MEAN CORPUSCULAR VOLUME 90 fL (80-99); MEAN PLATELET VOLUME 10.2 fL (9.0-12.2); MONOCYTES # (AUTO) 0.7 10^3/uL (0.0-1.0); MONOCYTES % (AUTO) 6 % (0-12); NEUTROPHILS % (AUTO) 75 % (42-75); PLATELET COUNT 187 10^3/uL (130-400); WHITE BLOOD COUNT 10.7 10^3/uL (4.3-11.0)
[2021-03-13 08:17] VITALS: BP 127/60
[2021-03-13] MEDS: DOCUSATE SODIUM 100 MG (COLACE) CAP PO SCH ×2 (08:17→21:33)
[2021-03-13] MEDS: HYDROcodone/APAP 5 MG/325 MG (LORTAB) TAB PO PRN ×2 (08:17→21:35)
--- NOTE | 2021-03-13 09:21 | Postpartum Progress Note ---
Note Note Day # 1 Subjective: Patient is without complaints. Ambulating, voiding. Tolerating a regular diet without nausea or vomiting. Normal lochia. Pain is well controlled with oral pain medications. Objective: Physical Exam: General - Alert and oriented, no apparent distress Abdomen - Soft, appropriately tender to palpation, non-distended, fundus firm at umbilicus; incision c/d/i Extremities - no edema, negative Ajay's bilaterally Assessment: Post- day # 1, status post RLTCS. Recovering well, hemodynamically stable Acute blood loss anemia Plan: Routine care. Encourage breast feeding. Encourage ambulation. Ferrous sulfate supplementation. Plan for discharge tomorrow Vitals - Labs Vital Signs - I&O Vital Signs Date Time Temp Pulse Resp B/P (MAP) Pulse Ox O2 Delivery O2 Flow Rate FiO2 03/13/21 08:17 36.1 83 18 127/60 (82) 98 Room Air 03/13/21 05:00 36.4 90 18 121/67 (85) 98 Room Air 03/12/21 23:11 36.0 80 18 121/59 (79) 98 Room Air 03/12/21 20:35 36.0 90 16 135/72 (93) 98 Room Air 03/12/21 16:08 Room Air 03/12/21 15:51 36.3 85 16 120/64 (82) 98 Room Air 03/12/21 10:13 36.1 88 16 128/65 (86) Room Air I & O 03/13/21 07:00 Intake Total 2750 ml Output Total 2775 ml Balance -25 ml Labs Laboratory Tests 03/13/21 05:56: White Blood Count 10.7, Red Blood Count 3.13L, Hemoglobin 8.8L, Hematocrit 28L, Mean Corpuscular Volume 90, Mean Corpuscular Hemoglobin 28, Mean Corpuscular Hemoglobin Concent 31L, Red Cell Distribution Width 15.3H, Platelet Count 187, Mean Platelet Volume 10.2, Immature Granulocyte % (Auto) 0, Neutrophils (%) (Auto) 75, Lymphocytes (%) (Auto) 18, Monocytes (%) (Auto) 6, Eosinophils (%) (Auto) 0, Basophils (%) (Auto) 0, Neutrophils # (Auto) 8.0H, Lymphocytes # (Auto) 1.9, Monocytes # (Auto) 0.7, Eosinophils # (Auto) 0.0, Basophils # (Auto) 0.0, Immature Granulocyte # (Auto) 0.0 Microbiology 03/12/21 MRSA Screen - Final, Complete MRSA not isolated ABI ABDI AD TRAFFICKER Mar 13, 2021 09:21
--- NOTE | 2021-03-13 14:14 | Anesthesia-Regional Post-Op ---
Regional Patient Condition Mental Status: Alert, Oriented x3 Circulation: Same as Pre-Op Headache: Absent Sensation: Full Recovery Motor Block: Absent Post Op Complications Complications None Follow Up Care/Instructions Patient Instructions None needed. Anesthesia/Patient Condition Patient is doing well, no complaints, stable vital signs, no apparent adverse anesthesia problems. No complications reported per nursing. SIMON WOODY CRNA Mar 13, 2021 14:14
[2021-03-13] MEDS: IBUPROFEN 600 MG (MOTRIN) TAB PO SCH ×2 (14:25→21:33)
[2021-03-13 14:26] VITALS: BP 127/62
[2021-03-13 21:30] VITALS: BP 120/55
[2021-03-14 03:25] VITALS: BP 123/65
[2021-03-14] MEDS: IBUPROFEN 600 MG (MOTRIN) TAB PO SCH ×2 (03:25→09:17)
[2021-03-14] MEDS: DOCUSATE SODIUM 100 MG (COLACE) CAP PO SCH (09:17)
[2021-03-14] MEDS: HYDROcodone/APAP 5 MG/325 MG (LORTAB) TAB PO PRN (09:17)
[2021-03-14 09:21] VITALS: BP 115/62
--- NOTE | 2021-03-14 12:46 | Postpartum Progress Note ---
Post Op Post-operative Day #2 Subjective: Patient is without complaints. Ambulating, voiding after neves removed. Tolerating a regular diet without nausea or vomiting. Normal lochia. Pain is well controlled with oral pain medications. Passing flatus. Objective: Vital Signs 03/14/21 09:21 Temp 36.5 Pulse 85 Resp 18 B/P (MAP) 115/62 (79) Pulse Ox 98 O2 Delivery Room Air Physical Exam: General - Alert and oriented, no apparent distress Abdomen - Soft, appropriately tender to palpation, non-distended, normal bowel sounds, fundus not palpable Incision - clean, dry and intact; no erythema or induration, no drainage Extremities - no edema, negative Ajay's bilaterally Assessment: post-operative day #2, status post repeat delivery. Recovering well, hemodynamically stable Plan: Routine post-operative care. Encourage breast feeding. Encourage ambulation. VTE prophylaxis: SCDs. Ferrous sulfate supplementation. Plan for discharge today Vitals - Labs Vital Signs - I&O Vital Signs Date Time Temp Pulse Resp B/P (MAP) Pulse Ox O2 Delivery O2 Flow Rate FiO2 03/14/21 09:21 36.5 85 18 115/62 (79) 98 Room Air 03/14/21 03:25 36.3 79 16 123/65 (84) 99 Room Air 03/13/21 21:30 36.4 77 16 120/55 (76) 99 Room Air 03/13/21 14:26 36.4 87 18 127/62 (83) 98 Room Air Labs Microbiology 03/12/21 MRSA Screen - Final, Complete MRSA not isolated YARELIS ADRIAN MD Mar 14, 2021 12:45
[2021-03-14] MEDS ORDERED: CEPHALEXIN 250 MG (KEFLEX) CAP PO SCH (13:00)
--- NOTE | 2021-03-14 13:03 | Short Stay Summary ---
Discharge Summary Hospital Course Was the Problem List Reviewed?: Yes Final Diagnosis: repeat delivery - delivered Hospital Course Date of Admission: Mar 12, 2021 at 05:55 Admission Diagnosis : Family Physician/Provider: Shirley Bone MD Date of Discharge: 03/14/21 Discharge Diagnosis: S/p repeat Hospital Course: Derrick Neville is a 21 G3 now P2 who presented for scheduled repeat delivery. Patient's care was at [facility] in [facility], and was referred to Dr. Young for . Her was otherwise uncomplicated. There were no concerns on patient presentation, and she underwent a repeat LTCS on 03/12/21, as scheduled, without complications. Surgery and delivery were uncomplicated, and EBL was 500ml. see operative reports. Patient's course was uncomplicated. On POD#1, she had a Hgb 8.8g/dL, and was doing well. By POD#2, patient was meeting all goals; ambulating without difficulty, appropriate urine output, positive flatus, tolerating diet, minimal lochia, and pain was controlled. Incision was CDI without erythema/induration on the day of discharge. Patient was discharged to home on POD#2 in stable medical condition Labs and Pending Lab Test: Microbiology 03/12/21 MRSA Screen - Final, Complete MRSA not isolated Home Meds Active Docusate Sodium 100 Mg Capsule 100 Mg PO BID PRN HYDROcodone/APAP 5 MG/325 MG TAB (Acetaminophen/Hydrocodone Bitart) 1 Tab Tab 1-2 Ea PO Q6HR PRN Ibu (Ibuprofen) 600 Mg Tablet 600 Mg PO Q6HR Reported Valacyclovir (Valacyclovir HCl) 500 Mg Tablet 500 Mg PO DAILY Iron (Ferrous Sulfate) 325 Mg Tablet 325 Mg PO DAILY Vitamins ( Vit W-Ca,Fe,FA(<1 mg)) 1 Each Tablet 1 Each PO DAILY Assessment/Pt Instructions POD#2 s/p repeat low transverse - Pelvic Rest for 6 weeks; no sex, tampon use, or douching - No heavy lifting greater than baby or carseat for 4-6 weeks - Return to clinic in 1 week for wound check - Return to clinic in 6 weeks for visit - Return for temperature >100.4 degrees, vaginal bleeding greater than 2 maxi pads in 1 hour over 4 hours, abdominal pain, intractable nausea or vomiting, headaches that don't go away with treatment, spots in your vision, chest pain/shortness of breath or other concerns. - Keep all follow up appointments. Discharge Instructions Discharge Diet: No Restrictions Activity as Tolerated: Yes Discharge Physical Examination General Appearance: Alert, Oriented X3, Cooperative HEENT: Atraumatic, EOMI Cardiovascular: Regular Rate Abdominal: Normal Bowel Sounds, Soft, No Tenderness Skin: No Rashes, No Breakdown, Other (incision is clean, dry, and intact. No erythema, edema, or warmth) Neuro: Normal Gait, Normal Speech, Normal Tone, Sensation Intact Psych/Mental Status: Mental Status NL Allergies: Coded Allergies: No Known Drug Allergies (Unverified , 02/15/20) Discharge Summary Date of Admission Mar 12, 2021 at 05:55 Date of Discharge Discharge Date: Mar 14, 2021 YARELIS ADRIAN MD Mar 14, 2021 13:03
== END 2021-03-14 14:15 | disposition home or self-care (01) | DRG 787 ==
LOC: LDRP 03-12 05:55
PROVIDERS: ADMIT Obstetrics & Gynecology; ATTEND Obstetrics & Gynecology
PROC: 10D00Z1 Extraction of Products of Conception, Low, Open Approach (ICD-10-PCS; principal; 2021-03-12 07:20)
DX: O34.211 Maternal care for low transverse scar from previous cesarean delivery (principal); D62 Acute posthemorrhagic anemia; Z3A.39 39 weeks gestation of pregnancy; Z37.0 Single live birth; O90.81 Anemia of the puerperium
CPT/HCPCS: 36415; 85025; 86850; 86900; 86901; 87081; 94664